=== PATIENT | female | born 1955 | race Caucasian/White ===

== ENCOUNTER 2018-01-28 12:45 | Day surgery (SDC) | payer MEDICARE ==
[~2018-01-28 12:45] MED LIST: Buffered Lidocaine 0.9% SYRIN* 5 ML/SYR SYRINGE INTRADERM ONE
[2018-01-28] MEDS ORDERED: Lidocaine 1% MPF* 2 ML VIAL ONE (12:58)
[2018-01-28] MEDS ORDERED: Neomycin/Polymy/Dex OPHTH.OIN* 3.5 GM ONE (12:58)
[2018-01-28] MEDS ORDERED: Tropicamide 1% OPTH.SOL* BTL ONE (12:58)
[2018-01-28] MEDS ORDERED: Ketorolac 0.5% OPHTH (NF) 0.5 % 5 ML BTL ONE (12:58)
[2018-01-28] MEDS ORDERED: Phenylephrine 2.5% OPTH.SOL* 2 ML BTL ONE (12:58)
[2018-01-28] MEDS ORDERED: Tetracaine 0.5% OPTH.SOL 4 ML* 1 DROP BTL ONE (12:58)
[2018-01-28] MEDS ORDERED: Cyclopentolate 1% OPTH.SOL* 2 ML BTL ONE (12:58)
[2018-01-28] MEDS ORDERED: Midazolam* 1 MG/ML 2 ML VIAL (2 MG) ONE (15:28)
[2018-01-28] MEDS ORDERED: fentaNYL* 50 MCG/ML 2 ML VIAL (100 MCG VIAL) ONE (15:29)
[2018-01-28 16:41] VITALS: BP 92/51
--- NOTE | 2018-01-29 11:52 | OP ---
OPERATIVE REPORT: DATE OF OPERATION: 01/28/18 DATE OF : 53 SURGEON: Dr. Slick Adams. SEARCH MARKETING COORDINATOR: None. ANESTHESIA: Topical with intravenous sedation. PRE-OP DIAGNOSIS: Cataract, right eye. POST-OP DIAGNOSIS: Cataract, right eye. OPERATIVE PROCEDURE: Phacoemulsification and cataract extraction with posterior chamber intraocular lens implant, right eye. COMPLICATIONS: None. BLOOD LOSS: None. DESCRIPTION OF PROCEDURE: The patient was brought to the operating room and received a small amount of intravenous sedation. A drop of Tetracaine was placed in her right eye. She was prepped and drap ed in the usual sterile fashion for ophthalmic surgery and attention was directed to the right eye wh ere a speculum was placed. A paracentesis was created at the 11 o'clock position and 0.1 cc of 1 per cent preservative-free Lidocaine was injected into the anterior chamber followed by DisCoVisc. The e ye was digitally stabilized while a 2.75 mm keratome was used to create a triplanar clear corneal inc ision at the 9 o'clock position. A continuous curvilinear capsulorrhexis was created with a cystotom e and Utrata forceps. BSS on a cannula was used to hydrodissect the lens from the capsule. Phacoemul sification was performed in a buesan-ibr-yvwwrlo technique to create four fragments which were remove d. Residual cortical material was removed with irrigation and aspiration. DisCoVisc was used to inf late the capsular bag and an [id number] 21.5 diopter lens was folded and inserted into the capsular bag. DisCoVisc was removed using irrigation and aspiration. BSS on a cannula was used to hydrate the cor angelica stroma and seal the wound. At the end of the case the pupil was round and the lens was centered . The eye was of normal pressure and the wound was water tight. The speculum was removed and topica l Maxitrol ointment was placed on the surface of the eye. The eye was closed, patched and shielded a nd the patient was sent to the recovery room in stable condition with post operative instructions and follow-up appointment given. [id number]/[facility] #: [id number]
== END 2018-01-28 16:19 | disposition home or self-care (01) ==
LOC: OREAST 12:45
PROVIDERS: ATTEND Ophthalmology
DX: H25.11 Age-related nuclear cataract, right eye (principal); E11.9 Type 2 diabetes mellitus without complications; Z79.84 Long term (current) use of oral hypoglycemic drugs; Z79.4 Long term (current) use of insulin; I10 Essential (primary) hypertension; E78.4 Other hyperlipidemia; F41.8 Other specified anxiety disorders; K75.81 Nonalcoholic steatohepatitis (NASH); D69.3 Immune thrombocytopenic purpura; M19.90 Unspecified osteoarthritis, unspecified site
CPT/HCPCS: A9270-GY; J2250; J3010; V2632

== ENCOUNTER 2018-02-04 11:05 | Day surgery (SDC) | payer MEDICARE ==
[~2018-02-04 11:05] MED LIST changes: +Cyclopentolate 1% OPTH.SOL* 2 ML BTL ONE; +Ketorolac 0.5% OPHTH (NF) 0.5 % 5 ML BTL ONE; +Lidocaine 1% MPF* 2 ML VIAL ONE; +Neomycin/Polymy/Dex OPHTH.OIN* 3.5 GM ONE; +Phenylephr/Ketorolac 1%/0.3% OPH DROP BTL ONE; +Phenylephrine 2.5% OPTH.SOL* 2 ML BTL ONE; +Tetracaine 0.5% OPTH.SOL 4 ML* 1 DROP BTL ONE; +Tropicamide 1% OPTH.SOL* BTL ONE
[2018-02-04] MEDS ORDERED: fentaNYL* 50 MCG/ML 2 ML VIAL (100 MCG VIAL) ONE (12:58)
[2018-02-04] MEDS ORDERED: Midazolam* 1 MG/ML 5 ML VIAL (5 MG) ONE (12:58)
[2018-02-04 14:15] VITALS: BP 95/49
--- NOTE | 2018-02-04 16:46 | OP ---
DATE OF OPERATION/DATE OF DICTATION: 02/04/2018 - LOCATED WITHIN [facility] DATE OF : 1955. SURGEON: Dr. Slick Adams. ELECTRONIC RESOURCES LIBRARIAN: None. ANESTHESIA: Topical with intravenous sedation. PRE-OP DIAGNOSIS: Cataract, left eye. POST-OP DIAGNOSIS: Cataract, left eye. OPERATIVE PROCEDURE: Phacoemulsification and cataract extraction with posterior chamber intraocular lens implant, left eye. COMPLICATIONS: None. BLOOD LOSS: None. DESCRIPTION OF PROCEDURE: The patient was brought to the operating room and received a small amount of intra-venous sedation. A drop of Tetracaine was placed in her left eye. She was prepped and draped in the usual sterile fashion for ophthalmic surgery and attention was directed to the left eye where a speculum was placed. A paracentesis was created at the 5 o'clock position and 0.1 cc of 1 percent preservative-free Lidocaine was injected into the anterior chamber followed by DisCoVisc. The eye was digitally stabilized while a 2.75 mm keratome was used to create a triplanar clear corneal incision at the 3 o'clock position. A continuous curvilinear capsulorrhexis was created with a cystotome and Utrata forceps. BSS on a cannula was used to hydrodissect the lens from the capsule. Phacoemulsification was performed in a divide-and- conquer technique to create four fragments which were removed. Residual cortical material was removed with irrigation and aspiration. DisCoVisc was used to inflate the capsular bag and an AUOOTO 22.0 diopter lens was folded and inserted into the capsular bag. DisCoVisc was removed using irrigation and aspiration. BSS on a cannula was used to hydrate the corneal stroma and seal the wound. At the end of the case the pupil was round and the lens was centered. The eye was of normal pressure and the wound was water tight. The speculum was removed and topical Maxitrol ointment was placed on the surface of the eye. The eye was closed, patched and shielded and the patient was sent to the recovery room in stable condition with post operative instructions and follow-up appointment given. [id number]/[facility] #: [id number] MTDD
== END 2018-02-04 14:22 | disposition home or self-care (01) ==
LOC: OREAST 11:05
PROVIDERS: ATTEND Ophthalmology
DX: H25.12 Age-related nuclear cataract, left eye (principal); E11.9 Type 2 diabetes mellitus without complications; Z79.84 Long term (current) use of oral hypoglycemic drugs; D83.9 Common variable immunodeficiency, unspecified; Z85.41 Personal history of malignant neoplasm of cervix uteri; K76.0 Fatty (change of) liver, not elsewhere classified
CPT/HCPCS: A9270-GY; C9447; J2250; J3010; V2632

== ENCOUNTER 2019-09-16 12:06 | Emergency (ER) | payer MEDICARE ==
--- OUTSIDE RECORDS SUMMARY | 2019-09-16 12:25 | XMS REPORT | Continuity of Care Document ---
:1955 External Reference #:[id number] Author Name Alec Velasquez M.D. (transmitted by agent of provider Selma Zurita) Address [address] [place] [address] Care Team Providers Name Role Phone Herminio Barron MD - Internal Care Team Information [employer] Teacher [phone] Medicine Problems Description No Information Available Social History Type Date Description Comments Sex Unknown Tobacco Use Start: Unknown Patient has never smoked Smoking Status Reviewed: 08/28/19 Patient has never smoked Allergies, Adverse Reactions, Alerts Active Allergies Reaction Severity Comments Date Aspirin 05/03/2010 Ibuprofen 05/03/2010 Morphine 05/03/2010 Codeine 05/03/2010 Lorcet 05/03/2010 Ultram 05/03/2010 Soma 05/03/2010 Cortisone 05/03/2010 Prednisone 05/03/2010 Ceftin 05/03/2010 Flonase 05/03/2010 vioxx 05/03/2010 Dilaudid 05/03/2010 Percocet 01/20/2019 Sulfur 01/20/2019 Singulair 01/20/2019 Bactroban 01/20/2019 Cipro 01/20/2019 Levaquin 01/20/2019 Biaxin 01/20/2019 Statins 01/20/2019 NSAIDS 01/20/2019 Adhesives and band aids 01/20/2019 Bee Sting anaphylactic shock 01/20/2019 Tomatoes 01/20/2019 Medications Active Medications SIG Qnty Indications Ordering Date Provider Epipen 2-Elvis use as directed as 2units Alec Velasquez, 07/28/2019 needed for severe M.D. 0.3mg/0.3ML allergic reaction; Solution go to the ER for Auto-Inject severe reactions Ambulatory Infusion infusion pump for 1units Alec Velasquez, 07/08/2019 Pump [id number] home infusion by Mauricio patient for subcutaneous infusion of Hizentra Hizentra 2 gm/10 milliliters 40ml Alec Victoriar, 05/26/2019 2GM/10ML every week M.D. Solution Lidoderm 1 apply to affected 30units M06.251 Alec Victoriar, 01/20/2019 5% Patches area 12 hours on, 12 M.D. hours off to the right lateral hip region Cymbalta 1 po qd Kayley Gonsalves, 05/03/2010 60mg Caps M.D., FACP DR Martha Mae 1 po qd 90tabs Kayley Brina, 05/03/2010 100mg M.D., FACP Tablets Skelaxin 1 q 8 hours prn 15tabs Kayleyonel Gonsalves, 05/03/2010 800mg muscle spasms M.D., FACP Tablets Fish Oil Unknown Cinnamon Unknown Magnesium Unknown Vitamin D Unknown Toujeo Max Solostar Unknown 300Unit/ML Solution Pen-Inject Humalog sliding scale Unknown 100Unit/ML Solution Cartridge Nayely Allergy 1 tab by mouth every Unknown day as needed 180mg Tablets Gabapentin take one capsule by Unknown 400mg mouth 3 times a day Capsules Metformin HCL 1000 mg breakfast Unknown 500mg and bedtime, 500 mg Tablets at lunch Immunizations CPT Code Status Date Vaccine Lot # [id number] Given 07/26/2008 Influenza Virus 3Yrs & Over Vital Signs Date Vital Result Comment 08/28/2019 11:46am Height 62 inches 5'2" Weight 185.00 lb Heart Rate 68 /min BP Systolic Sitting 153 mmHg BP Diastolic Sitting 74 mmHg Respiratory Rate 18 /min Body Temperature 96.5 F Pain Level 10 back O2 % BldC Oximetry 98 % BMI (Body Mass Index) 33.8 kg/m2 05/26/2019 1:38pm Height 62 inches 5'2" Weight 181.00 lb Heart Rate 84 /min BP Systolic Sitting 122 mmHg BP Diastolic Sitting 72 mmHg Pain Level 9 O2 % BldC Oximetry 94 % BMI (Body Mass Index) 33.1 kg/m2 Results Test Acquired Date Facility Test Result H/L Range Note Comp Metabolic 05/27/2019 [facility] Sodium 137 mmol/L Normal 135-[address] [place] [address] [phone] Potassium 3.4 mmol/L Low 3.5-5.0 Chloride 102 mmol/L Normal 101-111 Co2 Carbon Dioxide 29 mmol/L Normal 22-32 Anion Gap 6 mmol/L Normal 2-11 Glucose 292 mg/dL High 70-100 Blood Urea Nitrogen 7 mg/dL Normal 6-24 Creatinine 0.51 mg/dL Normal 0.51-0.95 BUN/Creatinine Ratio 13.7 Normal 8-20 Calcium 8.8 mg/dL Normal 8.6-10.3 Total Protein 6.9 g/dL Normal 6.4-8.9 Albumin 3.0 g/dL Low 3.2-5.2 Globulin 3.9 g/dL Normal 2-4 Albumin/Globulin Ratio 0.8 Low 1-3 Total Bilirubin 1.60 mg/dL High 0.2-1.0 Alkaline Phosphatase 169 U/L High 34-104 Alt 18 U/L Normal 7-52 Ast 29 U/L Normal 13-39 Egfr Non- 121.0 >60 Egfr 146.4 >60 1 Laboratory test 05/27/2019 [facility] C Reactive 11.53 High < 8.[address] Protein mg/[place] [address] [phone] CBC Auto Diff 05/27/2019 [facility] White Blood 4.9 Normal 3.5 -10.[address] Count 10^3/[place] [address] [phone] Red Blood Count 4.58 10^6/uL Normal 3.70-4.87 Hemoglobin 14.4 g/dL Normal 12.0-16.0 Hematocrit 42 % Normal 35-47 Mean Corpuscular Volume 91 fL Normal 80-97 Mean Corpuscular Hemoglobin 31 pg Normal 27-31 Mean Corpuscular HGB Conc 34 g/dL Normal 31-36 Red Cell Distribution Width 15 % Normal 10-15 Platelet Count 65 10^3/uL Low 150-450 2 Mean Platelet Volume 8.1 fL Normal 7.4-10.4 Abs Neutrophils 2.8 10^3/uL Normal 1.5-7.7 Abs Lymphocytes 1.4 10^3/uL Normal 1.0-4.8 Abs Monocytes 0.5 10^3/uL Normal 0-0.8 Abs Eosinophils 0.2 10^3/uL Normal 0-0.6 Abs Basophils 0.0 10^3/uL Normal 0-0.2 Abs Nucleated RBC 0.0 10^3/uL Granulocyte % 56.5 % Lymphocyte % 29.1 % Monocyte % 9.2 % Eosinophil % 4.5 % Basophil % 0.7 % Nucleated Red Blood Cells % 0.1 Laboratory test 05/27/2019 [facility] Erythrocyte Sed 24 mm/Hr Normal 0-29 [address] [place] [address] [phone] Comp Metabolic 03/31/2019 [facility] Sodium 135 Normal 135- [address] mmol/[place] [address] [phone] Potassium 3.6 mmol/L Normal 3.5-5.0 Chloride 100 mmol/L Low 101-111 Co2 Carbon Dioxide 27 mmol/L Normal 22-32 Anion Gap 8 mmol/L Normal 2-11 Glucose 173 mg/dL High 70-100 Blood Urea Nitrogen 7 mg/dL Normal 6-24 Creatinine 0.43 mg/dL Low 0.51-0.95 BUN/Creatinine Ratio 16.3 Normal 8-20 Calcium 9.3 mg/dL Normal 8.6-10.3 Total Protein 6.9 g/dL Normal 6.4-8.9 Albumin 3.0 g/dL Low 3.2-5.2 Globulin 3.9 g/dL Normal 2-4 Albumin/Globulin Ratio 0.8 Low 1-3 Total Bilirubin 1.60 mg/dL High 0.2-1.0 Alkaline Phosphatase 169 U/L High 34-104 Alt 20 U/L Normal 7-52 Ast 35 U/L Normal 13-39 Egfr Non- 147.8 >60 Egfr 178.9 >60 4 Laboratory test 03/31/2019 [facility] C Reactive 9.89 mg/L High <8.[address] [place] [address] [phone] CBC Auto Diff 03/31/2019 [facility] White Blood 6.2 Normal 3.5 -10.[address] Count 10^3/[place] [address] [phone] Red Blood Count 4.59 10^6/uL Normal 3.70-4.87 Hemoglobin 14.1 g/dL Normal 12.0-16.0 Hematocrit 42 % Normal 35-47 Mean Corpuscular Volume 92 fL Normal 80-97 Mean Corpuscular Hemoglobin 31 pg Normal 27-31 Mean Corpuscular HGB Conc 34 g/dL Normal 31-36 Red Cell Distribution Width 15 % Normal 10.5-15 Platelet Count 78 10^3/uL Low 150-450 5 Mean Platelet Volume 8.1 fL Normal 7.4-10.4 Abs Neutrophils 3.7 10^3/uL Normal 1.5-7.7 Abs Lymphocytes 1.7 10^3/uL Normal 1.0-4.8 Abs Monocytes 0.6 10^3/uL Normal 0-0.8 Abs Eosinophils 0.2 10^3/uL Normal 0-0.6 Abs Basophils 0.0 10^3/uL Normal 0-0.2 Abs Nucleated RBC 0.0 10^3/uL Granulocyte % 59.0 % Lymphocyte % 27.2 % Monocyte % 9.9 % Eosinophil % 3.1 % Basophil % 0.8 % Nucleated Red Blood Cells % 0.1 Laboratory test 03/31/2019 [facility] Erythrocyte Sed 24 mm/Hr Normal 0-[address] [place] [address] [phone] Comp Metabolic 03/03/2019 [facility] Sodium 137 Normal 135- [address] mmol/[place] [address] [phone] Potassium 3.3 mmol/L Low 3.5-5.0 Chloride 102 mmol/L Normal 101-111 Co2 Carbon Dioxide 27 mmol/L Normal 22-32 Anion Gap 8 mmol/L Normal 2-11 Glucose 324 mg/dL High 70-100 Blood Urea Nitrogen 6 mg/dL Normal 6-24 Creatinine 0.47 mg/dL Low 0.51-0.95 BUN/Creatinine Ratio 12.8 Normal 8-20 Calcium 8.8 mg/dL Normal 8.6-10.3 Total Protein 6.6 g/dL Normal 6.4-8.9 Albumin 3.0 g/dL Low 3.2-5.2 Globulin 3.6 g/dL Normal 2-4 Albumin/Globulin Ratio 0.8 Low 1-3 Total Bilirubin 1.00 mg/dL Normal 0.2-1.0 Alkaline Phosphatase 222 U/L High 34-104 Alt 21 U/L Normal 7-52 Ast 34 U/L Normal 13-39 Egfr Non- 133.4 >60 Egfr 161.4 >60 6 Laboratory test 03/03/2019 [facility] C Reactive 8.96 mg/L High <8.[address] [place] [address] [phone] CBC Auto Diff 03/03/2019 [facility] White Blood 4.7 Normal 3.5 -10.[address] Count 10^3/[place] [address] [phone] Red Blood Count 4.40 10^6/uL Normal 3.70-4.87 Hemoglobin 13.5 g/dL Normal 12.0-16.0 Hematocrit 40 % Normal 35-47 Mean Corpuscular Volume 92 fL Normal 80-97 Mean Corpuscular Hemoglobin 31 pg Normal 27-31 Mean Corpuscular HGB Conc 34 g/dL Normal 31-36 Red Cell Distribution Width 15 % Normal 10.5-15 Platelet Count 73 10^3/uL Low 150-450 7 Mean Platelet Volume 7.9 fL Normal 7.4-10.4 Abs Neutrophils 2.7 10^3/uL Normal 1.5-7.7 Abs Lymphocytes 1.2 10^3/uL Normal 1.0-4.8 Abs Monocytes 0.5 10^3/uL Normal 0-0.8 Abs Eosinophils 0.2 10^3/uL Normal 0-0.6 Abs Basophils 0.0 10^3/uL Normal 0-0.2 Abs Nucleated RBC 0.0 10^3/uL Granulocyte % 58.1 % Lymphocyte % 26.4 % Monocyte % 10.6 % Eosinophil % 4.6 % Basophil % 0.3 % Nucleated Red Blood Cells % 0.2 Laboratory test 03/03/2019 [facility] Erythrocyte Sed 25 mm/Hr Normal 0-[address] [place] [address] [phone] 1 Because ethnic data is not always readily available, this report includes an eGFR for both -Americans and non- Americans. The National Kidney Disease Education Program (NKDEP) does not endorse the use of the MDRD equation for patients that are not between the ages of 18 and 70, are , have extremes of body size, muscle mass, or nutritional status, or are non- or non-. According to the National Kidney Foundation, irrespective of diagnosis, the stage of the disease is based on the level of kidney function: Stage Description GFR(mL/min/1.73 m(2)) 1 Kidney damage with normal or decreased GFR 90 2 Kidney damage with mild decrease in GFR 60-89 3 Moderate decrease in GFR 30-59 4 Severe decrease in GFR 15-29 5 Kidney failure <15 (or dialysis) 2 Consistent with Previous Results Reported on 03/31/19 3 Test Performed by: [facility] [address] [place] [id number] Zhen Donaldson M.D. Director of Laboratory 4 Because ethnic data is not always readily available, this report includes an eGFR for both -Americans and non- Americans. The National Kidney Disease Education Program (NKDEP) does not endorse the use of the MDRD equation for patients that are not between the ages of 18 and 70, are , have extremes of body size, muscle mass, or nutritional status, or are non- or non-. According to the National Kidney Foundation, irrespective of diagnosis, the stage of the disease is based on the level of kidney function: Stage Description GFR(mL/min/1.73 m(2)) 1 Kidney damage with normal or decreased GFR 90 2 Kidney damage with mild decrease in GFR 60-89 3 Moderate decrease in GFR 30-59 4 Severe decrease in GFR 15-29 5 Kidney failure <15 (or dialysis) 5 Consistent with Previous Results Reported on 03/03/19 6 Because ethnic data is not always readily available, this report includes an eGFR for both -Americans and non- Americans. The National Kidney Disease Education Program (NKDEP) does not endorse the use of the MDRD equation for patients that are not between the ages of 18 and 70, are , have extremes of body size, muscle mass, or nutritional status, or are non- or non-. According to the National Kidney Foundation, irrespective of diagnosis, the stage of the disease is based on the level of kidney function: Stage Description GFR(mL/min/1.73 m(2)) 1 Kidney damage with normal or decreased GFR 90 2 Kidney damage with mild decrease in GFR 60-89 3 Moderate decrease in GFR 30-59 4 Severe decrease in GFR 15-29 5 Kidney failure <15 (or dialysis) 7 Consistent with Previous Results Reported on 01/20/19 Procedures Description No Information Available Medical Devices Description No Information Available Encounters Type Date Location Provider Dx Diagnosis Office Visit 05/26/2019 Rheumatology Alec Velasquez 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 08/28/2019 D69.3 Immune thrombocytopenic purpura Alec Velasquez M.D. 08/28/2019 G62.9 Polyneuropathy, unspecified Alec Velasquez M.D. 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 subclasses 05/26/2019 R74.8 Abnormal levels of other serum enzymes Alec Velasquez M.D. 05/26/2019 R20.8 Other disturbances of skin sensation Alec Velasquez M.D. 05/26/2019 G62.9 Polyneuropathy, unspecified Alec Velasquez M.D. Plan of Treatment Future Appointment(s):10/29/2019 1:00 pm - Alec Vel[facility]quez M.D. 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 Please evaluate and treat patient with Sent persistent low platelets and leukopenia; she would like a 2nd opinion [address] [place], [place] [id number] [phone]
[2019-09-16 13:08] LABS: ABS Eosinophils 0.2 10^3/ul (0-0.6); ABS Lymphocytes 1.6 10^3/ul (1.0-4.8); ABS Monocytes 0.6 10^3/ul (0-0.8); ABS Neutrophils 3.3 10^3/ul (1.5-7.7); Eosinophil % 3.3 %; Hematocrit 43 % (35-47); Mean Corpuscular HGB Conc 35 g/dL (31-36); Mean Corpuscular Hemoglobin 32 pg (27-31); Mean Corpuscular Volume 92 fL (80-97); Mean Platelet Volume 7.4 fL (7.4-10.4); Nucleated Red Blood Cells % 0.2; Platelet Count 81 10^3/uL (150-450); Red Cell Distribution Width 15 % (10-15); White Blood Count 5.8 10^3/uL (3.5-10.8)
[2019-09-16 13:34] LABS: Albumin 3.1 g/dL (3.2-5.2); Albumin/Globulin Ratio 0.8 (1-3); BUN/Creatinine Ratio 11.5 (8-20); EGFR African American 143.2 (>60); EGFR Non-African American 118.3 (>60); Potassium 3.9 mmol/L (3.5-5.0); Total Bilirubin 1.6 mg/dL (0.2-1.0); Total Protein 7.1 g/dL (6.4-8.9)
[2019-09-16] MEDS ORDERED: Ondansetron INJ* 2 MG/ML VIAL IV ONE (14:15)
[2019-09-16] MEDS ORDERED: fentaNYL* 50 MCG/ML 2 ML VIAL (100 MCG VIAL) IV SLOW PU ONE ×2 (14:16→16:19)
--- NOTE | 2019-09-16 14:18 | ED ---
GI/ HPI - HPI Summary HPI Summary: 64 year old female presents with abdominal pain for in the past month. States that pain is being caused by her gallbladder and she was suppose to have it removed as the smith where thick. she is unable to have the surgery due to the low platelets. She has a follow-up next week with dr covarrubias about her platelets. States she's been having consistent pain along with nausea and vomiting for a month. She denies eating anything different. She states is currently on azithromycin but diarrhea started before azithromycin. no blood in stool. She states that she is in severe pain and cannot eat due to the pain. No urinary symptoms. No chest pressures or shortness of breath. - History of Current Complaint Chief Complaint: EDAbdPain Time Seen by Provider: 09/16/19 13:59 Stated Complaint: UPPER ABD PAIN PER PT Pain Intensity: 10 - Allergy/Home Medications Allergies/Adverse Reactions: Allergies Allergy/AdvReac Type Severity Reaction Status Date / Time clarithromycin [From Biaxin] Allergy Severe Anaphylatic Verified 09/16/19 12:20 Shock acetaminophen [From Percocet] Allergy Anaphylatic Verified 09/16/19 12:20 Shock aspirin Allergy Anaphylatic Verified 09/16/19 12:20 Shock carisoprodol [From Soma] Allergy Anaphylatic Verified 09/16/19 12:20 Shock cefuroxime [From Ceftin] Allergy Anaphylatic Verified 09/16/19 12:20 Shock ciprofloxacin [From Cipro] Allergy Anaphylatic Verified 09/16/19 12:20 Shock codeine Allergy Anaphylatic Verified 09/16/19 12:20 Shock cortisone Allergy Anaphylatic Verified 09/16/19 12:20 Shock fluticasone [From Flonase] Allergy Anaphylatic Verified 09/16/19 12:20 Shock hydrocodone Allergy Anaphylatic Verified 09/16/19 12:20 [From Lorcet (hydrocodone)] Shock hydromorphone [From Dilaudid] Allergy Anaphylatic Verified 09/16/19 12:20 Shock ibuprofen Allergy Anaphylatic Verified 09/16/19 12:20 Shock levofloxacin [From Levaquin] Allergy Anaphylatic Verified 09/16/19 12:20 Shock meperidine [From Demerol] Allergy Anaphylatic Verified 09/16/19 12:20 Shock montelukast [From Singulair] Allergy Anaphylatic Verified 09/16/19 12:20 Shock morphine Allergy Anaphylatic Verified 09/16/19 12:20 Shock mupirocin [From Bactroban] Allergy Anaphylatic Verified 09/16/19 12:20 Shock oxycodone [From Percocet] Allergy Anaphylatic Verified 09/16/19 12:20 Shock prednisone Allergy Anaphylatic Verified 09/16/19 12:20 Shock rofecoxib [From Vioxx] Allergy Anaphylatic Verified 09/16/19 12:20 Shock Sulfa (Sulfonamide Allergy Anaphylatic Verified 09/16/19 12:20 Antibiotics) Shock tramadol [From Ultram] Allergy Anaphylatic Verified 09/16/19 12:20 Shock PMH/Surg Hx/FS Hx/Imm Hx Endocrine/Hematology History: Reports: Hx Diabetes Cardiovascular History: Denies: Hx Myocardial Infarction GI History: Reports: Hx Irritable Bowel History: Reports: Hx Kidney Stones Sensory History: Reports: Hx Cataracts - PRESENTLY, Hx Contacts or Glasses - GLASSES, Hx Hearing Aid - BILATERAL Opthamlomology History: Reports: Hx Cataracts - PRESENTLY, Hx Contacts or Glasses - GLASSES Neurological History: Reports: Other Neuro Impairments/Disorders - NEUROPATHY LEFT LEG Psychiatric History: Reports: Hx Depression - Surgical History Surgery Procedure, Year, and Place: 1985 [place] SUR[place]ERY [place]. [place]. 1985 BTL [place]. APPY 1992 [place]. LOWER BACK SURGERY [place]. 2000 RIGHT KNEE [place]. BACK SURGERY 2002 2003 BACK SURGERY [place]. D&C 2006 [facility] [place]. AN 2007 [facility] [place] LEFT [facility]AL [facility] CERVICAL FUSION 2009 [place]. 2012 SEPTAL SURGERY [place]. 2013 STENT KIDNEY [facility]. 2015 STIMULTOR IMPLANT [place]. RIGHT CARPAL [place] 2008 Hx Anesthesia Reactions: Yes - DURING BTL "HEART STOPPED" Infectious Disease History: No Infectious Disease History: Reports: Hx Hepatitis - AGE 16 Denies: Traveled Outside the [place] in Last 30 Days - Family History Known Family History: Positive: Non-Contributory - Social History Alcohol Use: None Substance Use Type: Reports: None Smoking Status (MU): Never Smoked Tobacco Have You Smoked in the Last Year: No Review of Systems Negative: Fever Negative: Chest Pain Negative: Shortness Of Breath Positive: Abdominal Pain, Vomiting, Diarrhea, Nausea All Other Systems Reviewed And Are Negative: Yes Physical Exam Triage Information Reviewed: Yes Vital Signs On Initial Exam: Initial Vitals Temp Pulse Resp BP Pulse Ox 98.4 F 71 16 132/65 97 09/16/19 12:15 09/16/19 12:15 09/16/19 12:15 09/16/19 12:15 09/16/19 12:15 Vital Signs Reviewed: Yes Appearance: Positive: Well-Appearing Skin: Positive: Warm, Dry Head/Face: Positive: Normal Head/Face Inspection Eyes: Positive: Normal, Conjunctiva Clear ENT: Positive: Pharynx normal Respiratory/Lung Sounds: Positive: Clear to Auscultation, Breath Sounds Present Cardiovascular: Positive: Normal, RRR Abdomen Description: Positive: Soft, Other: - tenderness in RUQ Bowel Sounds: Positive: Present Musculoskeletal: Positive: Normal Neurological: Positive: Normal Psychiatric: Positive: Normal Procedures - Sedation Patient Received Moderate/Deep Sedation with Procedure: No Diagnostics - Vital Signs Vital Signs Temp Pulse Resp BP Pulse Ox 09/16/19 12:15 98.4 F 71 16 132/65 97 - Laboratory Lab Results: Lab Results 09/16/19 09/16/19 Range/Units 13:01 13:01 WBC 5.8 (3.5-10.8) 10^3/uL RBC 4.70 (3.70-4.87) 10^6 /uL Hgb 15.0 (12.0-16.0) g/dL Hct 43 (35-47) % MCV 92 (80-97) fL MCH 32 H (27-31) pg MCHC 35 (31-36) g/dL RDW 15 (10-15) % Plt Count 81 L (150-450) 10^3/uL MPV 7.4 (7.4-10.4) fL Neut % (Auto) 57.4 % Lymph % (Auto) 28.0 % [place] % (Auto) 10.6 % Eos % (Auto) 3.3 % Baso % (Auto) 0.7 % Absolute Neuts (auto) 3.3 (1.5-7.7) 10^3/ul Absolute Lymphs (auto) 1.6 (1.0-4.8) 10^3/ul Absolute Monos (auto) 0.6 (0-0.8) 10^3/ul Absolute Eos (auto) 0.2 (0-0.6) 10^3/ul Absolute Basos (auto) 0.0 (0-0.2) 10^3/ul Absolute Nucleated RBC 0.0 10^3/ul Nucleated RBC % 0.2 Sodium 138 (135-145) mmol/L Potassium 3.9 (3.5-5.0) mmol/L Chloride 105 (101-111) mmol/L Carbon Dioxide 26 (22-32) mmol/L Anion Gap 7 (2-11) mmol/L BUN 6 (6-24) mg/dL Creatinine 0.52 (0.51-0.95) mg/dL Est GFR ( Amer) 143.2 (>60) Est GFR (Non-Af Amer) 118.3 (>60) BUN/Creatinine Ratio 11.5 (8-20) Glucose 125 H (70-100) mg/dL Calcium 9.0 (8.6-10.3) mg/dL Total Bilirubin 1.60 H (0.2-1.0) mg/dL AST 36 (13-39) U/L ALT 20 (7-52) U/L Alkaline Phosphatase 137 H (34-104) U/L Total Protein 7.1 (6.4-8.9) g/dL Albumin 3.1 L (3.2-5.2) g/dL Globulin 4.0 (2-4) g/dL Albumin/Globulin Ratio 0.8 L (1-3) Lipase 37 (11.0-82.0) U/L Result Diagrams: 09/16/19 13:01 09/16/19 13:01 Lab Statement: Any lab studies that have been ordered have been reviewed, and results considered in the medical decision making process. - Ultrasound No standard instances Ultrasound Interpretation Completed By: Radiologist Summary of Ultrasound Findings: IMPRESSION: TECHNICALLY DIFFICULT EXAM DUE TO PATIENT PAIN INTOLERANCE. 1. SONOGRAPHIC [place] SIGN WAS POSITIVE. THE NONDISTENDED GALLBLADDER CONTAINS SLUDGE. THERE IS NO INTRA OR EXTRAHEPATIC BILIARY DUCTAL DILATATION. 2. QUESTIONABLE EARLY CIRRHOTIC MORPHOLOGY OF THE LIVER IS CHARACTERIZED BY PARENCHYMAL HETEROGENEITY AND A NODULAR HEPATIC CAPSULE. Re-Evaluation - Re-Evaluation First Eval Re-Evaluation Time: 16:39 Change: Improved Comment: feeling better, discussed results GIGU Course/Dx - Course Course Of Treatment: 64 year old female presents with abdominal pain for in the past month. States that pain is being caused by her gallbladder and she was suppose to have it removed as the smith where thick. she is unable to have the surgery due to the low platelets. She has a follow-up next week with dr covarrubias about her platelets. States she's been having consistent pain along with nausea and vomiting for a month. She denies eating anything different. She states is currently on azithromycin but diarrhea started before azithromycin. no blood in stool. She states that she is in severe pain and cannot eat due to the pain. No urinary symptoms. No chest pressures or shortness of breath. On exam tenderness right upper quadrant. wbc normal. CRP normal. bilirubin 1.6 which is consistent with previous. platelets 81 which is consistent with previous. urine likely contaminant. gallbladder u/s shows nondistended gallbladder contains sludge. there is question of early cirrhotic morphology of liver. will give referral to GI and surgery. patient understand and agrees with plan. - Diagnoses Differential Diagnoses - Female: Gall Bladder Disease, Gastritis, Urinary Tract Infection Provider Diagnoses: Gallbladder sludge Discharge ED - Sign-Out/Discharge Documenting (check all that apply): Patient Departure - Discharge Plan Condition: Good Disposition: HOME Prescriptions: Ondansetron TAB* [Zofran 4 MG Tab*] 4 mg PO Q6H PRN #20 tab PRN Reason: Nausea Patient Education Materials: Biliary Colic (ED) Referrals: Jai Osuna MD [Medical Doctor] - Geni Jordan MD [Medical Doctor] - Minor Covarrubias MD [Medical Doctor] - Herminio Barron MD [Primary Care Provider] - Additional Instructions: follow up with heme follow up with surgery follow up with GI about liver Eat a low fat diet Return to ED if develop any new or worsening symptoms - Billing Disposition and Condition Condition: GOOD Disposition: Home - Attestation Statements Provider Attestation: I was available for consultation for this patient. I did not evaluate the patient or participate in any medical decision making or disposition decisions unless I am specifically named in the chart as having consulted on the patient. If I have consulted on the patient, please see my own ED note on the patient encounter. Izzy Barboza MD
[2019-09-16 14:48] LABS: Urine Appearance Cloudy; Urine Bilirubin Negative (Negative); Urine Blood Negative (Negative); Urine Color Amber; Urine Glucose Negative (Negative); Urine Ketones Negative (Negative); Urine Nitrite Negative (Negative); Urine Protein Negative (Negative); Urine Specific Gravity 1.019 (1.010-1.030); Urine Urobilinogen Negative (Negative)
[2019-09-16 14:56] LABS: Urine Bacteria Absent (Absent); Urine Red Blood Cell Absent (Absent); Urine Squamous Epithelial Cell Present (Absent); Urine White Blood Cell Trace(0-5/hpf) (Absent)
[2019-09-16] MEDS ORDERED: O ndansetron ODT 4MG 5TAB PRPK 4 MG PAK PO ONE (16:13)
[2019-09-16 17:01] VITALS: BP 140/69
== END 2019-09-16 17:00 | disposition home or self-care (01) ==
LOC: ED 12:06
DX: K82.9 Disease of gallbladder, unspecified (principal); R11.2 Nausea with vomiting, unspecified; E11.9 Type 2 diabetes mellitus without complications; Z88.6 Allergy status to analgesic agent; Z88.1 Allergy status to other antibiotic agents; Z88.5 Allergy status to narcotic agent; Z88.2 Allergy status to sulfonamides; Z88.8 Allergy status to other drugs, medicaments and biological substances
CPT/HCPCS: 36415; 76705; 80053; 81003; 81015; 83690; 85025; 87086; 96374; 96375; 96376; 99283; A9270-GY; J2405; J3010

== ENCOUNTER 2021-10-01 02:12 | Inpatient (IN) ==
[2021-10-01 06:38] LABS: ABS Eosinophils 0.1 10^3/ul (0-0.6); ABS Lymphocytes 1.2 10^3/ul (1.0-4.8); ABS Monocytes 1.1 10^3/ul (0-0.8); ABS Neutrophils 10.5 10^3/ul (1.5-7.7); Hematocrit 38 % (35-47); Hemoglobin 13.4 g/dL (12.0-16.0); Lymphocyte % 9.4 %; Mean Corpuscular HGB Conc 35 g/dL (31-36); Mean Corpuscular Hemoglobin 34 pg (27-31); Mean Corpuscular Volume 97 fL (80-97); Mean Platelet Volume 7.9 fL (7.4-10.4); Platelet Count 50 10^3/uL (150-450); Red Blood Count 3.92 10^6 /uL (3.70-4.87); Red Cell Distribution Width 15 % (10-15); White Blood Count 12.9 10^3/uL (3.5-10.8)
[2021-10-01 06:44] LABS: INR 1.43 (0.86-1.15)
[2021-10-01 06:56] LABS: ALT 18 U/L (7-52); Albumin 2.8 g/dL (3.2-5.2); Albumin/Globulin Ratio 0.7 (1-3); Alkaline Phosphatase 145 U/L (35-149); Blood Urea Nitrogen 13 mg/dL (6-24); CO2 Carbon Dioxide 25 mmol/L (22-32); Calcium 9.3 mg/dL (8.6-10.3); Chloride 100 mmol/L (101-111); Globulin 3.8 g/dL (2-4); Glucose 133 mg/dL (70-100); Sodium 131 mmol/L (135-145); Total Protein 6.6 g/dL (6.4-8.9); eGFR CKD-EPI 69.1 (>60)
[2021-10-01 06:58] LABS: Troponin I 0.01 ng/mL (<0.03)
[2021-10-01] MEDS ORDERED: NS 0.9% 1000 ml BAG 1,000 ML IV ONE (07:20)
[2021-10-01 08:25] LABS: Rapid COVID-19 Molecular Undetected (Undetected)
[2021-10-01] MEDS ORDERED: Ondansetron 4 mg VIAL 2 MG/ML 2 ml VIAL IV ONE (08:36)
[2021-10-01 09:22] LABS: Anion Gap 6 mmol/L (2-11)
[2021-10-01 10:05] LABS: Potassium Redraw 4.5 mmol/L (3.5-5.0)
[2021-10-01] MEDS ORDERED: Dextrose 50% Syringe 50 ml 25 GM/50 ML SYRINGE IV PUSH PRN (10:24)
[2021-10-01] MEDS ORDERED: Enoxaparin 40 MG/0.4 ML SYR SUBCUT SCH (11:00)
[2021-10-01] MEDS ORDERED: Prochlorperazine 5 mg/ml 2 ml VIAL (10 mg) IV PRN (11:06)
[2021-10-01] MEDS ORDERED: Prochlorperazine 5 mg/ml 2 ml VIAL (10 mg) IV ONE (11:06)
[2021-10-01 11:24] LABS: Urine Appearance Cloudy; Urine Bilirubin Negative (Negative); Urine Blood 1+ (Negative); Urine Color Yellow; Urine Glucose Negative (Negative); Urine Ketones Negative (Negative); Urine Nitrite Negative (Negative); Urine Protein Negative (Negative); Urine Specific Gravity 1.009 (1.002-1.030); Urine Urobilinogen Negative (Negative)
[2021-10-01 11:29] LABS: Urine Bacteria 2+ (Absent); Urine Red Blood Cell Absent (Absent); Urine Squamous Epithelial Cell Present (Absent); Urine White Blood Cell Trace(0-5/hpf) (Absent)
[2021-10-01] MEDS ORDERED: Insulin GLARGINE 100 un/ml 10 ml VIAL SUBCUT SCH (18:00)
[2021-10-01] MEDS: Lactulose 300 ML for PR 200 GM/300 ML BTL PR SCH (20:18)
[2021-10-01] MEDS ORDERED: Colestipol 1 gm TAB (NF) PO SCH (21:00)
[2021-10-01] MEDS: Insulin GLARGINE 100 un/ml 10 ml VIAL SUBCUT SCH (21:59)
[2021-10-02] MEDS: Lactulose 300 ML for PR 200 GM/300 ML BTL PR SCH ×3 (00:10→15:08)
[2021-10-02 05:40] LABS: ABS Monocytes 1.4 10^3/ul (0-0.8); ABS Neutrophils 13.2 10^3/ul (1.5-7.7); Eosinophil % 0.3 %; Hematocrit 36 % (35-47); Hemoglobin 12.8 g/dL (12.0-16.0); Lymphocyte % 6.4 %; Mean Corpuscular HGB Conc 35 g/dL (31-36); Mean Corpuscular Hemoglobin 35 pg (27-31); Mean Corpuscular Volume 98 fL (80-97); Mean Platelet Volume 8.2 fL (7.4-10.4); Platelet Count 41 10^3/uL (150-450); Red Cell Distribution Width 15 % (10-15); White Blood Count 15.6 10^3/uL (3.5-10.8)
[2021-10-02 08:41] LABS: Calcium 8.1 mg/dL (8.6-10.3); Potassium 4.1 mmol/L (3.5-5.0)
[2021-10-02 08:47] LABS: eGFR CKD-EPI 40.9 (>60)
[2021-10-02] MEDS: Cholecalciferol (VIT D3) 1,000 unit TAB PO SCH (09:16)
[2021-10-02] MEDS: Insulin GLARGINE 100 un/ml 10 ml VIAL SUBCUT SCH ×2 (09:29→21:57)
[2021-10-02] MEDS ORDERED: NS 0.9% 1000 ml BAG 1,000 ML IV SCH (16:30)
[2021-10-02] MEDS: metroNIDAZOLE IV 500 MG/100ML 500 MG/100 ML BAG IVPB SCH (17:28)
[2021-10-02] MEDS: Ondansetron 4 mg VIAL 2 MG/ML 2 ml VIAL IV PRN (22:00)
[2021-10-03] MEDS: metroNIDAZOLE IV 500 MG/100ML 500 MG/100 ML BAG IVPB SCH ×3 (00:34→17:17)
[2021-10-03] MEDS: Ondansetron 4 mg VIAL 2 MG/ML 2 ml VIAL IV PRN ×2 (00:34→22:12)
[2021-10-03 05:50] LABS: ABS Basophils 0.1 10^3/ul (0-0.2); ABS Eosinophils 0.3 10^3/ul (0-0.6); ABS Lymphocytes 1.5 10^3/ul (1.0-4.8); ABS Monocytes 1.1 10^3/ul (0-0.8); ABS Neutrophils 6.8 10^3/ul (1.5-7.7); Eosinophil % 2.8 %; Hematocrit 31 % (35-47); Lymphocyte % 15.2 %; Mean Corpuscular HGB Conc 36 g/dL (31-36); Mean Corpuscular Hemoglobin 35 pg (27-31); Mean Corpuscular Volume 96 fL (80-97); Mean Platelet Volume 7.7 fL (7.4-10.4); Platelet Count 37 10^3/uL (150-450); Red Blood Count 3.17 10^6 /uL (3.70-4.87); Red Cell Distribution Width 15 % (10-15); White Blood Count 9.8 10^3/uL (3.5-10.8)
[2021-10-03 06:09] LABS: Calcium 7.9 mg/dL (8.6-10.3); Magnesium 1.4 mg/dL (1.9-2.7); Potassium 3.3 mmol/L (3.5-5.0); eGFR CKD-EPI 49.1 (>60)
[2021-10-03] MEDS: Cholecalciferol (VIT D3) 1,000 unit TAB PO SCH (08:14)
[2021-10-03] MEDS: Insulin GLARGINE 100 un/ml 10 ml VIAL SUBCUT SCH ×2 (08:21→22:11)
[2021-10-03] MEDS: KCL 20 MEQ/100 ML IVPREMIX 20 MEQ/100 ML BAG IV SCH ×2 (10:00→13:52)
[2021-10-03] MEDS ORDERED: Potassium Chlor 20 meq TAB.ER PO ONE (13:49)
[2021-10-03] MEDS: Magnesium Sulfate 2 gm BAG 2 GM/50 ML BAG IVPB SCH ×2 (14:35→16:19)
[2021-10-03] MEDS ORDERED: Magnesium Sulfate 2 gm BAG 2 GM/50 ML BAG ONE (16:17)
[2021-10-04] MEDS: metroNIDAZOLE IV 500 MG/100ML 500 MG/100 ML BAG IVPB SCH ×2 (02:12→09:15)
[2021-10-04 05:30] LABS: ABS Eosinophils 0.2 10^3/ul (0-0.6); ABS Lymphocytes 1.2 10^3/ul (1.0-4.8); ABS Monocytes 0.7 10^3/ul (0-0.8); ABS Neutrophils 4.6 10^3/ul (1.5-7.7); Hematocrit 33 % (35-47); Hemoglobin 11.7 g/dL (12.0-16.0); Lymphocyte % 17.4 %; Mean Corpuscular HGB Conc 36 g/dL (31-36); Mean Corpuscular Hemoglobin 35 pg (27-31); Mean Corpuscular Volume 97 fL (80-97); Mean Platelet Volume 7.7 fL (7.4-10.4); Platelet Count 40 10^3/uL (150-450); Red Blood Count 3.37 10^6 /uL (3.70-4.87); Red Cell Distribution Width 16 % (10-15); White Blood Count 6.6 10^3/uL (3.5-10.8)
[2021-10-04 05:42] LABS: Magnesium 2.1 mg/dL (1.9-2.7); Potassium 4.1 mmol/L (3.5-5.0)
[2021-10-04] MEDS: Cholecalciferol (VIT D3) 1,000 unit TAB PO SCH (09:12)
[2021-10-04] MEDS: Insulin GLARGINE 100 un/ml 10 ml VIAL SUBCUT SCH ×2 (09:13→21:14)
[2021-10-04] MEDS: Ondansetron 4 mg VIAL 2 MG/ML 2 ml VIAL IV PRN (10:43)
[2021-10-04] MEDS ORDERED: Iodixanol (CONTRAST) 320 MG/ML 100 ML SDV IV ONE (15:12)
[2021-10-05 05:58] LABS: ABS Eosinophils 0.2 10^3/ul (0-0.6); ABS Lymphocytes 1.2 10^3/ul (1.0-4.8); ABS Monocytes 0.6 10^3/ul (0-0.8); ABS Neutrophils 3.8 10^3/ul (1.5-7.7); Eosinophil % 3.1 %; Hematocrit 31 % (35-47); Hemoglobin 11.1 g/dL (12.0-16.0); Lymphocyte % 19.8 %; Mean Corpuscular HGB Conc 36 g/dL (31-36); Mean Corpuscular Hemoglobin 35 pg (27-31); Mean Corpuscular Volume 97 fL (80-97); Mean Platelet Volume 7.3 fL (7.4-10.4); Platelet Count 45 10^3/uL (150-450); Red Blood Count 3.22 10^6 /uL (3.70-4.87); Red Cell Distribution Width 16 % (10-15); White Blood Count 5.8 10^3/uL (3.5-10.8)
[2021-10-05 06:10] LABS: Calcium 7.9 mg/dL (8.6-10.3); Magnesium 1.6 mg/dL (1.9-2.7); Potassium 3.8 mmol/L (3.5-5.0); eGFR CKD-EPI 76.1 (>60)
[2021-10-05] MEDS: Cholecalciferol (VIT D3) 1,000 unit TAB PO SCH (08:05)
[2021-10-05] MEDS ORDERED: Magnesium Sulfate 2 gm BAG 2 GM/50 ML BAG IVPB ONE (08:20)
[2021-10-05] MEDS: Insulin GLARGINE 100 un/ml 10 ml VIAL SUBCUT SCH ×2 (08:54→20:09)
[2021-10-05] MEDS ORDERED: Polyethylene Glycol 3350 17 GM PACKET PO PRN (11:26)
[2021-10-05] MEDS: Lactulose 30 ml UDC PO SCH ×2 (14:08→20:09)
[2021-10-05] MEDS: Saline NASAL DROPS 0.65% BTL BOTH NARES PRN ×2 (14:09→20:09)
[2021-10-06] MEDS: Lactulose 30 ml UDC PO SCH ×3 (08:47→20:51)
[2021-10-06] MEDS: Insulin GLARGINE 100 un/ml 10 ml VIAL SUBCUT SCH ×2 (08:47→20:52)
[2021-10-06] MEDS: Cholecalciferol (VIT D3) 1,000 unit TAB PO SCH (08:47)
[2021-10-06] MEDS ORDERED: Polyethylene Glycol 3350 17 GM PACKET PO ONE (11:26)
[2021-10-06] MEDS: Saline NASAL DROPS 0.65% BTL BOTH NARES PRN (20:56)
[2021-10-07] MEDS: Insulin GLARGINE 100 un/ml 10 ml VIAL SUBCUT SCH ×2 (08:52→20:17)
[2021-10-07] MEDS: Lactulose 30 ml UDC PO SCH ×3 (08:52→20:16)
[2021-10-07] MEDS: Cholecalciferol (VIT D3) 1,000 unit TAB PO SCH (08:52)
[2021-10-07] MEDS ORDERED: Polyethylene Glycol 3350 17 GM PACKET PO SCH ×2 (15:00→15:30)
[2021-10-07 15:14] LABS: Hematocrit 33 % (35-47); Hemoglobin 11.5 g/dL (12.0-16.0); Mean Corpuscular HGB Conc 35 g/dL (31-36); Mean Corpuscular Hemoglobin 34 pg (27-31); Mean Corpuscular Volume 97 fL (80-97); Red Blood Count 3.37 10^6 /uL (3.70-4.87); Red Cell Distribution Width 16 % (10-15); White Blood Count 6.5 10^3/uL (3.5-10.8)
[2021-10-07] MEDS ORDERED: Polyethylene Glycol 3350 17 GM PACKET PO ONE ×2 (15:31→16:00)
[2021-10-07 15:35] LABS: Albumin 2.3 g/dL (3.2-5.2); Albumin/Globulin Ratio 0.7 (1-3); C Reactive Protein 24.94 mg/L (<8.01); Calcium 8.8 mg/dL (8.6-10.3); Globulin 3.3 g/dL (2-4); Potassium 4.3 mmol/L (3.5-5.0); Total Bilirubin 1.8 mg/dL (0.2-1.0); Total Protein 5.6 g/dL (6.4-8.9); eGFR CKD-EPI 84.5 (>60)
[2021-10-07 15:41] LABS: ABS Eosinophils 0.2 10^3/ul (0-0.6); ABS Lymphocytes 1.5 10^3/ul (1.0-4.8); ABS Monocytes 0.8 10^3/ul (0-0.8); Eosinophil % 2.9 %; Lymphocyte % 23.2 %; Mean Platelet Volume 7.1 fL (7.4-10.4); Nucleated Red Blood Cells % 0.1; Platelet Count 52 10^3/uL (150-450)
[2021-10-08] MEDS: Insulin GLARGINE 100 un/ml 10 ml VIAL SUBCUT SCH (10:23)
[2021-10-08] MEDS: Cholecalciferol (VIT D3) 1,000 unit TAB PO SCH (10:23)
[2021-10-08] MEDS: Lactulose 30 ml UDC PO SCH (10:23)
[2021-10-08 12:24] VITALS: BP 105/60
== END 2021-10-08 13:25 | disposition home or self-care (01) | DRG 391 ==
LOC: EDHOLD 02:12 → ED 02:12 → SUATTDRO 10:24 → MED 14:51 → SUATTDRO 10-04 13:38
PROVIDERS: ADMIT Nurse Practitioner Adult Health; ATTEND Internal Medicine

== ENCOUNTER 2021-11-04 17:30 | Inpatient (IN) ==
[2021-11-04] MEDS ORDERED: Lactated Ringers 1000 ml BAG IV.FLUID IV ONE (18:08)
[2021-11-04 19:01] LABS: Activated Partial Thrombo Time 34.9 seconds (26.0-38.0); INR 1.27 (0.86-1.15)
[2021-11-04 19:05] LABS: ALT 20 U/L (7-52); Albumin 2.4 g/dL (3.2-5.2); Albumin/Globulin Ratio 0.6 (1-3); Alkaline Phosphatase 144 U/L (35-149); Blood Urea Nitrogen 16 mg/dL (6-24); C Reactive Protein 70.66 mg/L (<8.01); CO2 Carbon Dioxide 23 mmol/L (22-32); Calcium 7.9 mg/dL (8.6-10.3); Chloride 99 mmol/L (101-111); Globulin 3.7 g/dL (2-4); Glucose 114 mg/dL (70-100); Sodium 129 mmol/L (135-145); Total Protein 6.1 g/dL (6.4-8.9); eGFR CKD-EPI 83.2 (>60)
[2021-11-04 19:07] LABS: Troponin I 0.01 ng/mL (<0.03)
[2021-11-04 19:28] LABS: ABS Lymphocytes 0.8 10^3/ul (1.0-4.8); ABS Monocytes 0.6 10^3/ul (0-0.8); ABS Neutrophils 5.6 10^3/ul (1.5-7.7); Eosinophil % 0.2 %; Hematocrit 36 % (35-47); Hemoglobin 12.7 g/dL (12.0-16.0); Mean Corpuscular HGB Conc 35 g/dL (31-36); Mean Corpuscular Hemoglobin 34 pg (27-31); Mean Corpuscular Volume 97 fL (80-97); Mean Platelet Volume 9.8 fL (7.4-10.4); Nucleated Red Blood Cells % 0.2; Platelet Count 77 10^3/uL (150-450); Red Blood Count 3.74 10^6 /uL (3.70-4.87); Red Cell Distribution Width 15 % (10-15)
[2021-11-04 20:28] LABS: Anion Gap 7 mmol/L (2-11)
[2021-11-04] MEDS ORDERED: Remdesivir 100 mg Vial 200 MG in NS 0.9% 250 ml 210 ML IV ONE (20:41)
[2021-11-04] MEDS ORDERED: Dextran 70/Hypromellose Tears Eye Drops 15 ml BTL (for Artificials Tears) BOTH EYES PRN (20:42)
[2021-11-04] MEDS ORDERED: fentaNYL 100 mcg/2 ml 50 MCG/ML VIAL IV SLOW PU ONE (20:51)
[2021-11-04] MEDS ORDERED: Dextrose 50% Syringe 50 ml 25 GM/50 ML SYRINGE IV PUSH PRN (21:23)
[2021-11-04] MEDS: Lidocaine Patch REMOVE NOTE PATCH OFF SCH (23:26)
[2021-11-04] MEDS: NS 0.9% 1000 ml BAG 1,000 ML IV SCH (23:27)
[2021-11-05 00:11] LABS: Potassium Redraw 4.8 mmol/L (3.5-5.0)
[2021-11-05] MEDS: fentaNYL 100 mcg/2 ml 50 MCG/ML VIAL IV SLOW PU PRN ×5 (01:39→23:12)
[2021-11-05 07:38] LABS: INR 1.4 (0.86-1.15)
[2021-11-05 07:45] LABS: Albumin/Globulin Ratio 0.7 (1-3); Calcium 7.4 mg/dL (8.6-10.3); Globulin 2.9 g/dL (2-4); Potassium 4.4 mmol/L (3.5-5.0); Total Bilirubin 1.9 mg/dL (0.2-1.0); Total Protein 4.9 g/dL (6.4-8.9); eGFR CKD-EPI 90.1 (>60)
[2021-11-05 07:59] LABS: ABS Lymphocytes 0.7 10^3/ul (1.0-4.8); ABS Monocytes 0.7 10^3/ul (0-0.8); Eosinophil % 0.1 %; Hematocrit 32 % (35-47); Lymphocyte % 7.5 %; Mean Corpuscular HGB Conc 35 g/dL (31-36); Mean Corpuscular Hemoglobin 35 pg (27-31); Mean Corpuscular Volume 98 fL (80-97); Mean Platelet Volume 8.4 fL (7.4-10.4); Nucleated Red Blood Cells % 0.1; Platelet Count 37 10^3/uL (150-450); Red Blood Count 3.21 10^6 /uL (3.70-4.87); Red Cell Distribution Width 15 % (10-15); White Blood Count 9.4 10^3/uL (3.5-10.8)
[2021-11-05] MEDS: Lidocaine PATCH 5% PATCH TRANSDERM SCH (08:21)
[2021-11-05] MEDS: Pantoprazole VIAL 40 MG VIAL IV SCH ×2 (11:28→22:39)
[2021-11-05 12:31] LABS: ABS Eosinophils 0.1 10^3/ul (0-0.6); ABS Lymphocytes 0.7 10^3/ul (1.0-4.8); ABS Monocytes 0.5 10^3/ul (0-0.8); ABS Neutrophils 8.9 10^3/ul (1.5-7.7); Eosinophil % 0.5 %; Hematocrit 34 % (35-47); Hemoglobin 11.6 g/dL (12.0-16.0); Lymphocyte % 7.1 %; Mean Corpuscular HGB Conc 34 g/dL (31-36); Mean Corpuscular Hemoglobin 34 pg (27-31); Mean Corpuscular Volume 99 fL (80-97); Mean Platelet Volume 8.6 fL (7.4-10.4); Nucleated Red Blood Cells % 0.1; Platelet Count 34 10^3/uL (150-450); Red Blood Count 3.43 10^6 /uL (3.70-4.87); Red Cell Distribution Width 15 % (10-15); White Blood Count 10.2 10^3/uL (3.5-10.8)
[2021-11-05] MEDS: NS 0.9% 1000 ml BAG 1,000 ML IV SCH (13:37)
[2021-11-05] MEDS: Remdesivir 100 mg Vial 100 MG in NS 0.9% 250 ml 230 ML IV SCH (22:44)
[2021-11-05] MEDS: Lidocaine Patch REMOVE NOTE PATCH OFF SCH (22:47)
[2021-11-06 07:14] LABS: INR 1.72 (0.86-1.15)
[2021-11-06 07:24] LABS: ABS Eosinophils 0.1 10^3/ul (0-0.6); ABS Lymphocytes 0.9 10^3/ul (1.0-4.8); ABS Monocytes 0.6 10^3/ul (0-0.8); ABS Neutrophils 6.9 10^3/ul (1.5-7.7); Eosinophil % 1.1 %; Hematocrit 30 % (35-47); Hemoglobin 10.4 g/dL (12.0-16.0); Lymphocyte % 10.9 %; Mean Corpuscular HGB Conc 35 g/dL (31-36); Mean Corpuscular Hemoglobin 34 pg (27-31); Mean Corpuscular Volume 98 fL (80-97); Mean Platelet Volume 8.3 fL (7.4-10.4); Platelet Count 42 10^3/uL (150-450); Red Blood Count 3.05 10^6 /uL (3.70-4.87); Red Cell Distribution Width 15 % (10-15); White Blood Count 8.6 10^3/uL (3.5-10.8)
[2021-11-06 07:29] LABS: Calcium 6.9 mg/dL (8.6-10.3); Magnesium 1.3 mg/dL (1.9-2.7); Potassium 3.4 mmol/L (3.5-5.0); eGFR CKD-EPI 88.6 (>60)
[2021-11-06] MEDS ORDERED: Magnesium Sulfate 2 gm BAG 2 GM/50 ML BAG IVPB ONE (08:04)
[2021-11-06] MEDS ORDERED: KCL 20 MEQ/100 ML IVPREMIX 20 MEQ/100 ML BAG IV ONE (08:06)
[2021-11-06] MEDS: Pantoprazole VIAL 40 MG VIAL IV SCH ×2 (08:45→22:23)
[2021-11-06] MEDS: Lidocaine PATCH 5% PATCH TRANSDERM SCH (08:50)
[2021-11-06] MEDS: fentaNYL 100 mcg/2 ml 50 MCG/ML VIAL IV SLOW PU PRN ×3 (09:00→22:57)
[2021-11-06] MEDS ORDERED: Potassium Chlor 20 meq TAB.ER PO ONE (12:08)
[2021-11-06] MEDS: Benzocaine/Menthol LOZ MT PRN (16:30)
[2021-11-06] MEDS: Lidocaine Patch REMOVE NOTE PATCH OFF SCH (22:23)
[2021-11-06] MEDS: Remdesivir 100 mg Vial 100 MG in NS 0.9% 250 ml 230 ML IV SCH (22:26)
[2021-11-07] MEDS: Pantoprazole VIAL 40 MG VIAL IV SCH (07:24)
[2021-11-07] MEDS: Lidocaine PATCH 5% PATCH TRANSDERM SCH (07:24)
[2021-11-07] MEDS: fentaNYL 100 mcg/2 ml 50 MCG/ML VIAL IV SLOW PU PRN ×3 (07:24→19:41)
[2021-11-07] MEDS: Benzocaine/Menthol LOZ MT PRN (07:25)
[2021-11-07 07:43] LABS: ABS Eosinophils 0.1 10^3/ul (0-0.6); ABS Lymphocytes 0.9 10^3/ul (1.0-4.8); ABS Monocytes 0.7 10^3/ul (0-0.8); ABS Neutrophils 4.8 10^3/ul (1.5-7.7); Eosinophil % 1.1 %; Hematocrit 33 % (35-47); Hemoglobin 11.6 g/dL (12.0-16.0); Lymphocyte % 14.1 %; Mean Corpuscular HGB Conc 35 g/dL (31-36); Mean Corpuscular Hemoglobin 35 pg (27-31); Mean Corpuscular Volume 98 fL (80-97); Mean Platelet Volume 8.2 fL (7.4-10.4); Nucleated Red Blood Cells % 0.1; Platelet Count 55 10^3/uL (150-450); Red Blood Count 3.37 10^6 /uL (3.70-4.87); Red Cell Distribution Width 15 % (10-15); White Blood Count 6.5 10^3/uL (3.5-10.8)
[2021-11-07 08:04] LABS: INR 1.99 (0.86-1.15)
[2021-11-07 08:10] LABS: Calcium 7.2 mg/dL (8.6-10.3); Magnesium 1.7 mg/dL (1.9-2.7); Potassium 3.8 mmol/L (3.5-5.0); eGFR CKD-EPI 96.1 (>60)
[2021-11-07] MEDS ORDERED: Magnesium Sulfate 2 gm BAG 2 GM/50 ML BAG IVPB ONE (09:48)
[2021-11-07 13:14] LABS: Urine Appearance Clear; Urine Bilirubin Negative (Negative); Urine Blood Negative (Negative); Urine Color Yellow; Urine Glucose Negative (Negative); Urine Ketones Negative (Negative); Urine Nitrite Negative (Negative); Urine Protein Negative (Negative); Urine Specific Gravity 1.008 (1.002-1.030); Urine Urobilinogen Negative (Negative)
[2021-11-07] MEDS ORDERED: guaiFENesin/CODIENE 100mg/10mg 5 ML UDC PO PRN (21:33)
[2021-11-07] MEDS: Remdesivir 100 mg Vial 100 MG in NS 0.9% 250 ml 230 ML IV SCH (22:00)
[2021-11-07] MEDS: Lidocaine Patch REMOVE NOTE PATCH OFF SCH (22:04)
[2021-11-07] MEDS: Heparin 5000 UNITS/ML 1 mL VIAL SUBCUT SCH (22:10)
[2021-11-08] MEDS: fentaNYL 100 mcg/2 ml 50 MCG/ML VIAL IV SLOW PU PRN ×4 (00:10→21:27)
[2021-11-08] MEDS: Heparin 5000 UNITS/ML 1 mL VIAL SUBCUT SCH (06:08)
[2021-11-08 06:09] LABS: ABS Eosinophils 0.1 10^3/ul (0-0.6); ABS Lymphocytes 0.7 10^3/ul (1.0-4.8); ABS Monocytes 0.7 10^3/ul (0-0.8); ABS Neutrophils 3.2 10^3/ul (1.5-7.7); Eosinophil % 1.9 %; Hematocrit 31 % (35-47); Hemoglobin 10.8 g/dL (12.0-16.0); Lymphocyte % 15.3 %; Mean Corpuscular HGB Conc 35 g/dL (31-36); Mean Corpuscular Hemoglobin 34 pg (27-31); Mean Corpuscular Volume 98 fL (80-97); Mean Platelet Volume 8.4 fL (7.4-10.4); Nucleated Red Blood Cells % 0.1; Platelet Count 45 10^3/uL (150-450); Red Blood Count 3.15 10^6 /uL (3.70-4.87); Red Cell Distribution Width 15 % (10-15); White Blood Count 4.7 10^3/uL (3.5-10.8)
[2021-11-08 06:10] LABS: INR 2.22 (0.86-1.15)
[2021-11-08 06:24] LABS: Albumin 1.8 g/dL (3.2-5.2); Albumin/Globulin Ratio 0.7 (1-3); Calcium 7.2 mg/dL (8.6-10.3); Globulin 2.7 g/dL (2-4); Magnesium 1.8 mg/dL (1.9-2.7); Potassium 3.8 mmol/L (3.5-5.0); Total Bilirubin 1.6 mg/dL (0.2-1.0); Total Protein 4.5 g/dL (6.4-8.9); eGFR CKD-EPI 98.3 (>60)
[2021-11-08] MEDS ORDERED: Magnesium Sulfate IV 3 GM in NS 0.9% 100 ml BAG 100 ML IVPB ONE (07:15)
[2021-11-08] MEDS: Lidocaine PATCH 5% PATCH TRANSDERM SCH (08:35)
[2021-11-08] MEDS: Insulin GLARGINE 100 un/ml 10 ml VIAL SUBCUT SCH (08:36)
[2021-11-08] MEDS: Lidocaine Patch REMOVE NOTE PATCH OFF SCH (21:24)
[2021-11-08] MEDS: Remdesivir 100 mg Vial 100 MG in NS 0.9% 250 ml 230 ML IV SCH (21:26)
[2021-11-09 00:45] LABS: ABS Basophils 0.1 10^3/ul (0-0.2); ABS Eosinophils 0.2 10^3/ul (0-0.6); ABS Lymphocytes 1.3 10^3/ul (1.0-4.8); ABS Neutrophils 3.9 10^3/ul (1.5-7.7); Eosinophil % 3.1 %; Hematocrit 34 % (35-47); Hemoglobin 11.6 g/dL (12.0-16.0); Mean Corpuscular HGB Conc 34 g/dL (31-36); Mean Corpuscular Hemoglobin 34 pg (27-31); Mean Corpuscular Volume 98 fL (80-97); Mean Platelet Volume 8.2 fL (7.4-10.4); Nucleated Red Blood Cells % 0.1; Platelet Count 75 10^3/uL (150-450); Red Blood Count 3.44 10^6 /uL (3.70-4.87); Red Cell Distribution Width 15 % (10-15); White Blood Count 6.4 10^3/uL (3.5-10.8)
[2021-11-09 01:01] LABS: Albumin/Globulin Ratio 0.6 (1-3); Calcium 7.6 mg/dL (8.6-10.3); Globulin 3.2 g/dL (2-4); Potassium 3.4 mmol/L (3.5-5.0); Total Bilirubin 1.7 mg/dL (0.2-1.0); Total Protein 5.2 g/dL (6.4-8.9); eGFR CKD-EPI 95.7 (>60)
[2021-11-09 01:02] LABS: Troponin I 0.01 ng/mL (<0.03)
[2021-11-09] MEDS ORDERED: Potassium Chlor 20 meq TAB.ER PO ONE (01:23)
[2021-11-09] MEDS ORDERED: Iodixanol (CONTRAST) 320 MG/ML 100 ML SDV IV ONE (01:53)
[2021-11-09 04:34] LABS: INR 2.07 (0.86-1.15)
[2021-11-09 06:34] LABS: Hematocrit 31 % (35-47); Hemoglobin 10.7 g/dL (12.0-16.0); Mean Corpuscular HGB Conc 35 g/dL (31-36); Mean Corpuscular Hemoglobin 34 pg (27-31); Mean Corpuscular Volume 97 fL (80-97); Mean Platelet Volume 7.7 fL (7.4-10.4); Platelet Count 58 10^3/uL (150-450); Red Blood Count 3.17 10^6 /uL (3.70-4.87); Red Cell Distribution Width 15 % (10-15); White Blood Count 4.3 10^3/uL (3.5-10.8)
[2021-11-09 06:53] LABS: Troponin I 0.73 ng/mL (<0.03)
[2021-11-09 06:57] LABS: Anion Gap 1 mmol/L (2-11); Blood Urea Nitrogen 8 mg/dL (6-24); CO2 Carbon Dioxide 26 mmol/L (22-32); Calcium 7.2 mg/dL (8.6-10.3); Chloride 109 mmol/L (101-111); Glucose 109 mg/dL (70-100); Magnesium 1.6 mg/dL (1.9-2.7); Potassium 4.4 mmol/L (3.5-5.0); Sodium 136 mmol/L (135-145); eGFR CKD-EPI 97.9 (>60)
[2021-11-09] MEDS: Lidocaine PATCH 5% PATCH TRANSDERM SCH (08:32)
[2021-11-09] MEDS: Insulin GLARGINE 100 un/ml 10 ml VIAL SUBCUT SCH (08:32)
[2021-11-09] MEDS: fentaNYL 100 mcg/2 ml 50 MCG/ML VIAL IV SLOW PU PRN ×3 (08:34→22:45)
[2021-11-09 10:49] LABS: Troponin I 0.74 ng/mL (<0.03)
[2021-11-09] MEDS ORDERED: Enoxaparin 40 MG/0.4 ML SYR SUBCUT SCH (12:00)
[2021-11-09 13:34] LABS: Troponin I 0.54 ng/mL (<0.03)
[2021-11-09] MEDS: Lidocaine Patch REMOVE NOTE PATCH OFF SCH (21:51)
[2021-11-10 05:14] LABS: ABS Eosinophils 0.1 10^3/ul (0-0.6); ABS Lymphocytes 0.7 10^3/ul (1.0-4.8); ABS Monocytes 0.7 10^3/ul (0-0.8); ABS Neutrophils 3.2 10^3/ul (1.5-7.7); Eosinophil % 2.7 %; Hematocrit 33 % (35-47); Hemoglobin 11.2 g/dL (12.0-16.0); Lymphocyte % 14.5 %; Mean Corpuscular HGB Conc 34 g/dL (31-36); Mean Corpuscular Hemoglobin 33 pg (27-31); Mean Corpuscular Volume 97 fL (80-97); Mean Platelet Volume 7.8 fL (7.4-10.4); Nucleated Red Blood Cells % 0.1; Platelet Count 65 10^3/uL (150-450); Red Blood Count 3.37 10^6 /uL (3.70-4.87); Red Cell Distribution Width 15 % (10-15); White Blood Count 4.8 10^3/uL (3.5-10.8)
[2021-11-10 05:26] LABS: Albumin 1.9 g/dL (3.2-5.2); Albumin/Globulin Ratio 0.6 (1-3); Calcium 7.4 mg/dL (8.6-10.3); Magnesium 1.5 mg/dL (1.9-2.7); Potassium 4.3 mmol/L (3.5-5.0); Total Bilirubin 1.8 mg/dL (0.2-1.0); Total Protein 4.9 g/dL (6.4-8.9); eGFR CKD-EPI 97.9 (>60)
[2021-11-10] MEDS: Insulin GLARGINE 100 un/ml 10 ml VIAL SUBCUT SCH (08:09)
[2021-11-10] MEDS: fentaNYL 100 mcg/2 ml 50 MCG/ML VIAL IV SLOW PU PRN ×3 (08:10→22:17)
[2021-11-10] MEDS: Lidocaine PATCH 5% PATCH TRANSDERM SCH (08:10)
[2021-11-10] MEDS ORDERED: Enoxaparin 40 MG/0.4 ML SYR SUBCUT SCH (12:00)
[2021-11-10] MEDS: Ondansetron ODT 4 mg TAB 4 MG TAB PO PRN (13:39)
[2021-11-10] MEDS: Lidocaine Patch REMOVE NOTE PATCH OFF SCH (22:17)
[2021-11-11] MEDS: fentaNYL 100 mcg/2 ml 50 MCG/ML VIAL IV SLOW PU PRN ×4 (03:58→23:07)
[2021-11-11 06:37] LABS: Hematocrit 31 % (35-47); Hemoglobin 10.8 g/dL (12.0-16.0); Mean Corpuscular HGB Conc 35 g/dL (31-36); Mean Corpuscular Hemoglobin 34 pg (27-31); Mean Corpuscular Volume 98 fL (80-97); Mean Platelet Volume 7.7 fL (7.4-10.4); Platelet Count 56 10^3/uL (150-450); Red Blood Count 3.16 10^6 /uL (3.70-4.87); Red Cell Distribution Width 15 % (10-15); White Blood Count 3.9 10^3/uL (3.5-10.8)
[2021-11-11 06:52] LABS: Blood Urea Nitrogen 8 mg/dL (6-24); CO2 Carbon Dioxide 31 mmol/L (22-32); Calcium 7.5 mg/dL (8.6-10.3); Chloride 104 mmol/L (101-111); Glucose 134 mg/dL (70-100); Magnesium 1.6 mg/dL (1.9-2.7); Potassium 4.4 mmol/L (3.5-5.0); Sodium 135 mmol/L (135-145); eGFR CKD-EPI 98.7 (>60)
[2021-11-11] MEDS: Insulin GLARGINE 100 un/ml 10 ml VIAL SUBCUT SCH (10:03)
[2021-11-11] MEDS: Lidocaine PATCH 5% PATCH TRANSDERM SCH (10:08)
[2021-11-11] MEDS ORDERED: Enoxaparin 40 MG/0.4 ML SYR SUBCUT SCH (12:00)
[2021-11-11] MEDS: Lidocaine Patch REMOVE NOTE PATCH OFF SCH (22:44)
[2021-11-12] MEDS: Insulin GLARGINE 100 un/ml 10 ml VIAL SUBCUT SCH (08:37)
[2021-11-12] MEDS: fentaNYL 100 mcg/2 ml 50 MCG/ML VIAL IV SLOW PU PRN ×4 (08:52→22:10)
[2021-11-12 11:33] LABS: Troponin I 0.04 ng/mL (<0.03)
[2021-11-12 11:45] LABS: ABS Eosinophils 0.1 10^3/ul (0-0.6); ABS Lymphocytes 0.7 10^3/ul (1.0-4.8); ABS Monocytes 0.6 10^3/ul (0-0.8); ABS Neutrophils 3.1 10^3/ul (1.5-7.7); Eosinophil % 2.7 %; Hematocrit 32 % (35-47); Hemoglobin 10.8 g/dL (12.0-16.0); Lymphocyte % 16.1 %; Mean Corpuscular HGB Conc 34 g/dL (31-36); Mean Corpuscular Hemoglobin 34 pg (27-31); Mean Corpuscular Volume 100 fL (80-97); Mean Platelet Volume 8.4 fL (7.4-10.4); Nucleated Red Blood Cells % 0.1; Platelet Count 58 10^3/uL (150-450); Red Blood Count 3.21 10^6 /uL (3.70-4.87); Red Cell Distribution Width 15 % (10-15); White Blood Count 4.6 10^3/uL (3.5-10.8)
[2021-11-12 11:52] LABS: INR 1.78 (0.86-1.15)
[2021-11-12 11:57] LABS: ALT 13 U/L (7-52); AST 35 U/L (13-39); Albumin 1.7 g/dL (3.2-5.2); Albumin/Globulin Ratio 0.5 (1-3); Alkaline Phosphatase 127 U/L (35-149); Blood Urea Nitrogen 10 mg/dL (6-24); CO2 Carbon Dioxide 32 mmol/L (22-32); Calcium 7.9 mg/dL (8.6-10.3); Chloride 102 mmol/L (101-111); Globulin 3.1 g/dL (2-4); Glucose 185 mg/dL (70-100); Magnesium 1.4 mg/dL (1.9-2.7); Potassium 4.6 mmol/L (3.5-5.0); Sodium 133 mmol/L (135-145); Total Protein 4.8 g/dL (6.4-8.9); eGFR CKD-EPI 96.1 (>60)
[2021-11-12] MEDS ORDERED: Enoxaparin 40 MG/0.4 ML SYR SUBCUT SCH (13:00)
[2021-11-12] MEDS: Lidocaine PATCH 5% PATCH TRANSDERM SCH (15:56)
[2021-11-12] MEDS ORDERED: Saline NASAL SPRAY 0.65% BTL BOTH NARES PRN (18:36)
[2021-11-12] MEDS: Ondansetron ODT 4 mg TAB 4 MG TAB PO PRN (21:22)
[2021-11-12] MEDS: Lidocaine Patch REMOVE NOTE PATCH OFF SCH (21:58)
[2021-11-13 06:46] LABS: Hematocrit 31 % (35-47); Hemoglobin 10.7 g/dL (12.0-16.0); Mean Corpuscular HGB Conc 34 g/dL (31-36); Mean Corpuscular Hemoglobin 34 pg (27-31); Mean Corpuscular Volume 99 fL (80-97); Platelet Count 56 10^3/uL (150-450); Red Blood Count 3.15 10^6 /uL (3.70-4.87); Red Cell Distribution Width 15 % (10-15); White Blood Count 3.7 10^3/uL (3.5-10.8)
[2021-11-13 06:56] LABS: ALT 12 U/L (7-52); AST 34 U/L (13-39); Albumin 1.7 g/dL (3.2-5.2); Albumin/Globulin Ratio 0.5 (1-3); Alkaline Phosphatase 129 U/L (35-149); Blood Urea Nitrogen 9 mg/dL (6-24); CO2 Carbon Dioxide 34 mmol/L (22-32); Calcium 7.7 mg/dL (8.6-10.3); Chloride 102 mmol/L (101-111); Globulin 3.3 g/dL (2-4); Glucose 94 mg/dL (70-100); Magnesium 1.4 mg/dL (1.9-2.7); Potassium 4.7 mmol/L (3.5-5.0); Sodium 136 mmol/L (135-145); eGFR CKD-EPI 97.9 (>60)
[2021-11-13 07:15] LABS: Troponin I 0.03 ng/mL (<0.03)
[2021-11-13] MEDS ORDERED: NS 0.9% IVPB ONE ×3 (09:00→17:00)
[2021-11-13] MEDS ORDERED: MAGNESIUM SULFATE IVPB ONE ×3 (09:00→17:00)
[2021-11-13] MEDS: Insulin GLARGINE 100 un/ml 10 ml VIAL SUBCUT SCH (09:39)
[2021-11-13] MEDS: Lidocaine PATCH 5% PATCH TRANSDERM SCH (10:00)
[2021-11-13] MEDS ORDERED: Magnesium Sulfate 2 GM IV (Premix) IVPB ONE (16:01)
[2021-11-13] MEDS: fentaNYL 100 mcg/2 ml 50 MCG/ML VIAL IV SLOW PU PRN ×2 (16:40→20:49)
[2021-11-13] MEDS ORDERED: Magnesium Sulfate IV 0.5 GM/ML 2 ml VIAL (1 gm) IVPB ONE (23:00)
[2021-11-13] MEDS: Lidocaine Patch REMOVE NOTE PATCH OFF SCH (23:50)
[2021-11-14 08:27] LABS: Albumin 1.7 g/dL (3.2-5.2); Calcium 7.5 mg/dL (8.6-10.3); Hematocrit 30 % (35-47); Hemoglobin 10.4 g/dL (12.0-16.0); Magnesium 1.9 mg/dL (1.9-2.7); Mean Corpuscular HGB Conc 34 g/dL (31-36); Mean Corpuscular Hemoglobin 34 pg (27-31); Mean Corpuscular Volume 100 fL (80-97); Mean Platelet Volume 8.1 fL (7.4-10.4); Platelet Count 52 10^3/uL (150-450); Potassium 4.4 mmol/L (3.5-5.0); Red Blood Count 3.01 10^6 /uL (3.70-4.87); Red Cell Distribution Width 15 % (10-15); Total Bilirubin 1.5 mg/dL (0.2-1.0); White Blood Count 3.6 10^3/uL (3.5-10.8)
[2021-11-14 08:33] LABS: Albumin/Globulin Ratio 0.5 (1-3); Globulin 3.3 g/dL (2-4); eGFR CKD-EPI 97.9 (>60)
[2021-11-14] MEDS: Lidocaine PATCH 5% PATCH TRANSDERM SCH (08:55)
[2021-11-14] MEDS: Insulin GLARGINE 100 un/ml 10 ml VIAL SUBCUT SCH (09:09)
[2021-11-14] MEDS ORDERED: Aminophylline 25 MG/ML VIAL ONE (10:44)
[2021-11-14] MEDS ORDERED: Regadenoson 0.4 MG/5 ML SYRINGE ONE (10:44)
[2021-11-14] MEDS: fentaNYL 100 mcg/2 ml 50 MCG/ML VIAL IV SLOW PU PRN ×2 (13:43→21:53)
[2021-11-14] MEDS: Lidocaine Patch REMOVE NOTE PATCH OFF SCH (22:03)
[2021-11-15 06:51] LABS: Calcium 7.3 mg/dL (8.6-10.3); Magnesium 1.6 mg/dL (1.9-2.7); Phosphorus 2.4 mg/dL (2.5-5.0); Potassium 4.6 mmol/L (3.5-5.0); eGFR CKD-EPI 97.9 (>60)
[2021-11-15] MEDS: fentaNYL 100 mcg/2 ml 50 MCG/ML VIAL IV SLOW PU PRN ×2 (07:54→12:10)
[2021-11-15] MEDS: Insulin GLARGINE 100 un/ml 10 ml VIAL SUBCUT SCH (07:54)
[2021-11-15] MEDS: Lidocaine PATCH 5% PATCH TRANSDERM SCH (07:55)
[2021-11-15 09:41] VITALS: BP 98/43
== END 2021-11-15 15:20 | disposition home or self-care (01) | DRG 371 ==
LOC: MED 17:30 → ED 17:30 → SUATTDRO 22:51 → MED 23:00 → SUATTDRO 11-05 16:00
PROVIDERS: ADMIT Internal Medicine; ATTEND Internal Medicine

== ENCOUNTER 2021-12-04 12:29 | Inpatient (IN) ==
[2021-12-04 15:46] LABS: ABS Lymphocytes 0.7 10^3/ul (1.0-4.8); ABS Monocytes 1.3 10^3/ul (0-0.8); ABS Neutrophils 11.8 10^3/ul (1.5-7.7); Eosinophil % 0.2 %; Hematocrit 36 % (35-47); Hemoglobin 12.2 g/dL (12.0-16.0); Lymphocyte % 4.9 %; Mean Corpuscular HGB Conc 34 g/dL (31-36); Mean Corpuscular Hemoglobin 34 pg (27-31); Mean Corpuscular Volume 100 fL (80-97); Mean Platelet Volume 9.2 fL (7.4-10.4); Platelet Count 62 10^3/uL (150-450); Red Blood Count 3.59 10^6 /uL (3.70-4.87); Red Cell Distribution Width 16 % (10-15); White Blood Count 13.8 10^3/uL (3.5-10.8)
[2021-12-04 16:31] LABS: Albumin 2.1 g/dL (3.2-5.2); Calcium 8.4 mg/dL (8.6-10.3); Potassium 4.2 mmol/L (3.5-5.0); Total Bilirubin 2.9 mg/dL (0.2-1.0)
[2021-12-04 16:37] LABS: Albumin/Globulin Ratio 0.6 (1-3); Globulin 3.8 g/dL (2-4); Total Protein 5.9 g/dL (6.4-8.9); eGFR CKD-EPI 61.7 (>60)
[2021-12-04] MEDS ORDERED: Iodixanol (CONTRAST) 320 MG/ML 100 ML SDV IV ONE (17:05)
[2021-12-04] MEDS ORDERED: Dextrose 50% Syringe 50 ml 25 GM/50 ML SYRINGE IV PUSH PRN (21:19)
[2021-12-05] MEDS ORDERED: Lidocaine PATCH 5% PATCH TRANSDERM SCH (01:00)
[2021-12-05] MEDS: Insulin GLARGINE 100 un/ml 10 ml VIAL SUBCUT SCH ×2 (02:04→21:05)
[2021-12-05] MEDS: Lidocaine PATCH 5% PATCH TRANSDERM SCH ×2 (02:05→08:06)
[2021-12-05] MEDS ORDERED: NS 0.9% 500 ml BAG 500 ML IV ONE (03:06)
[2021-12-05] MEDS: NS 0.9% 1000 ml BAG 1,000 ML IV SCH ×2 (04:06→12:29)
[2021-12-05 08:33] LABS: ABS Eosinophils 0.3 10^3/ul (0-0.6); ABS Lymphocytes 1.4 10^3/ul (1.0-4.8); ABS Monocytes 0.7 10^3/ul (0-0.8); ABS Neutrophils 5.5 10^3/ul (1.5-7.7); Eosinophil % 3.5 %; Hematocrit 35 % (35-47); Lymphocyte % 17.5 %; Mean Corpuscular HGB Conc 34 g/dL (31-36); Mean Corpuscular Hemoglobin 34 pg (27-31); Mean Corpuscular Volume 98 fL (80-97); Mean Platelet Volume 8.3 fL (7.4-10.4); Nucleated Red Blood Cells % 0.1; Platelet Count 60 10^3/uL (150-450); Red Blood Count 3.55 10^6 /uL (3.70-4.87); Red Cell Distribution Width 16 % (10-15); White Blood Count 7.9 10^3/uL (3.5-10.8)
[2021-12-05 08:35] LABS: INR 1.56 (0.86-1.15)
[2021-12-05 08:45] LABS: Albumin/Globulin Ratio 0.5 (1-3); Calcium 8.2 mg/dL (8.6-10.3); Globulin 3.7 g/dL (2-4); Total Bilirubin 2.2 mg/dL (0.2-1.0); Total Protein 5.7 g/dL (6.4-8.9); eGFR CKD-EPI 69.1 (>60)
[2021-12-05 08:50] LABS: Urine Appearance Turbid; Urine Bilirubin Negative (Negative); Urine Blood Negative (Negative); Urine Color Amber; Urine Glucose Negative (Negative); Urine Ketones Negative (Negative); Urine Nitrite Negative (Negative); Urine Protein Negative (Negative); Urine Specific Gravity 1.026 (1.002-1.030); Urine Urobilinogen Negative (Negative)
[2021-12-05 08:54] LABS: Urine Bacteria 1+ (Absent); Urine Red Blood Cell Trace(0-2/hpf) (Absent); Urine Squamous Epithelial Cell Present (Absent); Urine White Blood Cell 3+(>20/hpf) (Absent)
[2021-12-05] MEDS: Lidocaine Patch REMOVE NOTE PATCH OFF SCH (21:06)
[2021-12-06 06:05] LABS: Hematocrit 31 % (35-47); Hemoglobin 10.6 g/dL (12.0-16.0); Mean Corpuscular HGB Conc 35 g/dL (31-36); Mean Corpuscular Hemoglobin 34 pg (27-31); Mean Corpuscular Volume 98 fL (80-97); Mean Platelet Volume 8.8 fL (7.4-10.4); Platelet Count 58 10^3/uL (150-450); Red Blood Count 3.12 10^6 /uL (3.70-4.87); Red Cell Distribution Width 16 % (10-15); White Blood Count 5.5 10^3/uL (3.5-10.8)
[2021-12-06 06:22] LABS: Calcium 7.6 mg/dL (8.6-10.3); Magnesium 1.7 mg/dL (1.9-2.7); eGFR CKD-EPI 93.1 (>60)
[2021-12-06] MEDS: Lidocaine PATCH 5% PATCH TRANSDERM SCH (08:12)
[2021-12-06] MEDS ORDERED: Cefepime ADVAN 1 GM in NS 0.9% 50 ML 50 ML IVPB SCH (14:00)
[2021-12-06] MEDS: Cefepime 1 GM in Dextrose 1 GM/50 ML BAG IV SCH (18:07)
[2021-12-06] MEDS: Insulin GLARGINE 100 un/ml 10 ml VIAL SUBCUT SCH (20:32)
[2021-12-06] MEDS: Lidocaine Patch REMOVE NOTE PATCH OFF SCH (23:55)
[2021-12-07] MEDS: Saline NASAL SPRAY 0.65% BTL BOTH NARES PRN (03:22)
[2021-12-07] MEDS: Cefepime 1 GM in Dextrose 1 GM/50 ML BAG IV SCH ×2 (04:56→17:25)
[2021-12-07 06:53] LABS: Magnesium 1.6 mg/dL (1.9-2.7); Potassium 4.2 mmol/L (3.5-5.0); eGFR CKD-EPI 78.4 (>60)
[2021-12-07 06:54] LABS: Hematocrit 32 % (35-47); Hemoglobin 10.9 g/dL (12.0-16.0); Mean Corpuscular HGB Conc 35 g/dL (31-36); Mean Corpuscular Hemoglobin 34 pg (27-31); Mean Corpuscular Volume 99 fL (80-97); Mean Platelet Volume 8.3 fL (7.4-10.4); Platelet Count 51 10^3/uL (150-450); Red Blood Count 3.19 10^6 /uL (3.70-4.87); Red Cell Distribution Width 16 % (10-15); White Blood Count 4.7 10^3/uL (3.5-10.8)
[2021-12-07] MEDS: Lidocaine PATCH 5% PATCH TRANSDERM SCH (08:13)
[2021-12-07] MEDS: Insulin GLARGINE 100 un/ml 10 ml VIAL SUBCUT SCH (21:28)
[2021-12-08] MEDS: Cefepime 1 GM in Dextrose 1 GM/50 ML BAG IV SCH ×2 (04:16→16:36)
[2021-12-08] MEDS: Lidocaine Patch REMOVE NOTE PATCH OFF SCH ×2 (04:16→20:32)
[2021-12-08] MEDS: Saline NASAL SPRAY 0.65% BTL BOTH NARES PRN (04:34)
[2021-12-08 05:35] LABS: Hematocrit 32 % (35-47); Hemoglobin 10.9 g/dL (12.0-16.0); Mean Corpuscular HGB Conc 34 g/dL (31-36); Mean Corpuscular Hemoglobin 34 pg (27-31); Mean Corpuscular Volume 98 fL (80-97); Mean Platelet Volume 7.9 fL (7.4-10.4); Platelet Count 50 10^3/uL (150-450); Red Blood Count 3.23 10^6 /uL (3.70-4.87); Red Cell Distribution Width 16 % (10-15); White Blood Count 4.6 10^3/uL (3.5-10.8)
[2021-12-08 05:43] LABS: Calcium 8.3 mg/dL (8.6-10.3); Magnesium 1.4 mg/dL (1.9-2.7); eGFR CKD-EPI 97.5 (>60)
[2021-12-08] MEDS ORDERED: Magnesium Sulfate IV 3 GM in NS 0.9% 100 ml BAG 100 ML IVPB ONE (07:44)
[2021-12-08] MEDS ORDERED: Magnesium Sulfate 2 GM IV (Premix) IVPB ONE (08:00)
[2021-12-08] MEDS: Lidocaine PATCH 5% PATCH TRANSDERM SCH (08:12)
[2021-12-08] MEDS ORDERED: Magnesium Sulfate 1 GM IV 1 GM/100 ML BAG IV ONE (09:00)
[2021-12-08] MEDS ORDERED: COVID-19 VACCINE, MRNA(MODERNA)/PF 100 MCG/0.5 ML IM ONE (14:48)
[2021-12-08] MEDS: Ondansetron 4 mg VIAL 2 MG/ML 2 ml VIAL IV PRN (19:30)
[2021-12-08] MEDS: Insulin GLARGINE 100 un/ml 10 ml VIAL SUBCUT SCH (20:30)
[2021-12-09] MEDS: Ondansetron 4 mg VIAL 2 MG/ML 2 ml VIAL IV PRN ×2 (02:36→13:10)
[2021-12-09 06:21] LABS: Calcium 8.4 mg/dL (8.6-10.3); Magnesium 1.6 mg/dL (1.9-2.7); Potassium 4.5 mmol/L (3.5-5.0); eGFR CKD-EPI 85.8 (>60)
[2021-12-09 06:47] LABS: Hematocrit 34 % (35-47); Hemoglobin 11.4 g/dL (12.0-16.0); Mean Corpuscular HGB Conc 34 g/dL (31-36); Mean Corpuscular Hemoglobin 34 pg (27-31); Mean Corpuscular Volume 100 fL (80-97); Platelet Count 48 10^3/uL (150-450); Red Blood Count 3.35 10^6 /uL (3.70-4.87); Red Cell Distribution Width 17 % (10-15)
[2021-12-09 07:07] LABS: Mean Platelet Volume 8.3 fL (7.4-10.4)
[2021-12-09] MEDS: Saline NASAL SPRAY 0.65% BTL BOTH NARES PRN (09:03)
[2021-12-09] MEDS: Lidocaine PATCH 5% PATCH TRANSDERM SCH (09:03)
[2021-12-09 12:41] VITALS: BP 98/44
== END 2021-12-09 13:30 | disposition home or self-care (01) | DRG 871 ==
LOC: EDHOLD 12:29 → ED 12:29 → EDHOLD 23:14 → MEDTELE 12-05 01:03 → SUATTDRO 12-05 15:12
PROVIDERS: ADMIT Internal Medicine; ATTEND Internal Medicine

== ENCOUNTER 2021-12-19 14:13 | Inpatient (IN) ==
[2021-12-19 15:39] LABS: ABS Eosinophils 0.2 10^3/ul (0-0.6); ABS Lymphocytes 0.7 10^3/ul (1.0-4.8); ABS Monocytes 0.8 10^3/ul (0-0.8); ABS Neutrophils 6.1 10^3/ul (1.5-7.7); Eosinophil % 2.1 %; Hematocrit 36 % (35-47); Hemoglobin 12.2 g/dL (12.0-16.0); Lymphocyte % 8.6 %; Mean Corpuscular HGB Conc 34 g/dL (31-36); Mean Corpuscular Hemoglobin 34 pg (27-31); Mean Corpuscular Volume 100 fL (80-97); Mean Platelet Volume 7.9 fL (7.4-10.4); Platelet Count 76 10^3/uL (150-450); Red Blood Count 3.58 10^6 /uL (3.70-4.87); Red Cell Distribution Width 18 % (10-15); White Blood Count 7.7 10^3/uL (3.5-10.8)
[2021-12-19 15:50] LABS: INR 1.85 (0.86-1.15)
[2021-12-19] MEDS ORDERED: LoraTADine 10 mg TAB (NF) PO ONE (15:53)
[2021-12-19 15:56] LABS: Albumin 2.3 g/dL (3.2-5.2); Albumin/Globulin Ratio 0.6 (1-3); Calcium 8.3 mg/dL (8.6-10.3); Globulin 3.9 g/dL (2-4); Potassium 3.1 mmol/L (3.5-5.0); Total Protein 6.2 g/dL (6.4-8.9); eGFR CKD-EPI 56.3 (>60)
[2021-12-19 16:21] LABS: Direct Bilirubin 15.8 mg/dL (0.03-0.18)
[2021-12-19 16:25] LABS: Indirect Bilirubin 5.9 mg/dL (0.3-1.0); Total Bilirubin 21.7 mg/dL (0.2-1.0)
[2021-12-19 19:07] LABS: Troponin I 0.01 ng/mL (<0.03)
[2021-12-19] MEDS ORDERED: Potassium Chlor 20 meq TAB.ER PO ONE (21:04)
[2021-12-19] MEDS: Enoxaparin 40 MG/0.4 ML SYR SUBCUT SCH (21:19)
[2021-12-19] MEDS ORDERED: Ondansetron ODT 4 mg TAB 4 MG TAB PO PRN (21:26)
[2021-12-19 21:33] LABS: Magnesium 1.7 mg/dL (1.9-2.7)
[2021-12-19] MEDS ORDERED: Dextrose 50% Syringe 50 ml 25 GM/50 ML SYRINGE IV PUSH PRN (21:39)
[2021-12-19] MEDS ORDERED: Magnesium Sulfate 2 gm BAG 2 GM/50 ML BAG IVPB ONE (21:46)
[2021-12-19] MEDS ORDERED: Lactulose 30 ml UDC PO PRN (21:52)
[2021-12-19] MEDS: Insulin GLARGINE 100 un/ml 10 ml VIAL SUBCUT SCH (22:58)
[2021-12-20] MEDS ORDERED: Dextran 70/Hypromellose Tears Eye Drops 15 ml BTL (for Artificials Tears) BOTH EYES PRN (00:11)
[2021-12-20] MEDS ORDERED: Cholestyramine Resin 4 GM POWDER PO ONE (03:06)
[2021-12-20] MEDS ORDERED: Cholestyramine Resin 4 GM POWDER ONE (03:16)
[2021-12-20 07:42] LABS: Albumin 1.9 g/dL (3.2-5.2); Albumin/Globulin Ratio 0.6 (1-3); Calcium 7.8 mg/dL (8.6-10.3); Globulin 3.4 g/dL (2-4); Potassium 4.1 mmol/L (3.5-5.0); Total Protein 5.3 g/dL (6.4-8.9); eGFR CKD-EPI 60.3 (>60)
[2021-12-20 07:50] LABS: Magnesium 2.2 mg/dL (1.9-2.7); Total Bilirubin 19.1 mg/dL (0.2-1.0)
[2021-12-20 07:55] LABS: Hematocrit 32 % (35-47); Hemoglobin 11.1 g/dL (12.0-16.0); Mean Corpuscular HGB Conc 34 g/dL (31-36); Mean Corpuscular Hemoglobin 34 pg (27-31); Mean Corpuscular Volume 100 fL (80-97); Mean Platelet Volume 8.2 fL (7.4-10.4); Platelet Count 68 10^3/uL (150-450); Red Blood Count 3.23 10^6 /uL (3.70-4.87); Red Cell Distribution Width 18 % (10-15); White Blood Count 6.8 10^3/uL (3.5-10.8)
[2021-12-20] MEDS: Cholecalciferol (VIT D3) 1,000 unit TAB PO SCH (08:47)
[2021-12-20] MEDS ORDERED: Lidocaine PATCH 5% PATCH TRANSDERM SCH (09:00)
[2021-12-20] MEDS: Enoxaparin 40 MG/0.4 ML SYR SUBCUT SCH (20:54)
[2021-12-20] MEDS ORDERED: Lidocaine Patch REMOVE NOTE PATCH OFF SCH (21:00)
[2021-12-20] MEDS: Cholestyramine Resin 4 GM POWDER PO SCH (21:07)
[2021-12-20] MEDS: Insulin GLARGINE 100 un/ml 10 ml VIAL SUBCUT SCH (21:10)
[2021-12-20 22:35] LABS: Urine Appearance Cloudy; Urine Bilirubin 2+ (Negative); Urine Blood 1+ (Negative); Urine Color Amber; Urine Glucose 1+(50 mg/dL) (Negative); Urine Ketones Negative (Negative); Urine Nitrite Negative (Negative); Urine Protein Negative (Negative); Urine Specific Gravity 1.019 (1.002-1.030); Urine Urobilinogen Positive (Negative)
[2021-12-20 22:41] LABS: Urine Bacteria 1+ (Absent); Urine Red Blood Cell 1+(3-5/hpf) (Absent); Urine Squamous Epithelial Cell Present (Absent); Urine White Blood Cell 2+(11-20/hpf) (Absent)
[2021-12-21 05:48] LABS: ABS Eosinophils 0.2 10^3/ul (0-0.6); ABS Lymphocytes 0.9 10^3/ul (1.0-4.8); ABS Monocytes 0.7 10^3/ul (0-0.8); ABS Neutrophils 4.4 10^3/ul (1.5-7.7); Eosinophil % 3.9 %; Hematocrit 30 % (35-47); Hemoglobin 10.5 g/dL (12.0-16.0); Lymphocyte % 14.9 %; Mean Corpuscular HGB Conc 35 g/dL (31-36); Mean Corpuscular Hemoglobin 35 pg (27-31); Mean Corpuscular Volume 100 fL (80-97); Mean Platelet Volume 8.1 fL (7.4-10.4); Platelet Count 66 10^3/uL (150-450); Red Blood Count 3.03 10^6 /uL (3.70-4.87); Red Cell Distribution Width 18 % (10-15); White Blood Count 6.3 10^3/uL (3.5-10.8)
[2021-12-21 05:50] LABS: INR 1.86 (0.86-1.15)
[2021-12-21 06:06] LABS: Albumin 1.9 g/dL (3.2-5.2); Albumin/Globulin Ratio 0.6 (1-3); Calcium 7.9 mg/dL (8.6-10.3); Total Protein 4.9 g/dL (6.4-8.9); eGFR CKD-EPI 40.5 (>60)
[2021-12-21 06:08] LABS: Total Bilirubin 20.1 mg/dL (0.2-1.0)
[2021-12-21 06:27] LABS: Direct Bilirubin 15.2 mg/dL (0.03-0.18); Indirect Bilirubin 4.9 mg/dL (0.3-1.0)
[2021-12-21] MEDS: Lidocaine PATCH 5% PATCH TRANSDERM SCH (09:57)
[2021-12-21] MEDS: Cholestyramine Resin 4 GM POWDER PO SCH ×2 (09:57→20:24)
[2021-12-21] MEDS: Cholecalciferol (VIT D3) 1,000 unit TAB PO SCH (09:57)
[2021-12-21] MEDS: Albumin Human 25% 25 GM/100 ML IV SCH ×3 (17:48→19:18)
[2021-12-21] MEDS ORDERED: Albumin Human 25% 75 GM/300 ML BTL IV SCH (18:00)
[2021-12-21] MEDS ORDERED: Octreotide Acetate 500 MCG in NS 0.9% 100 ml BAG 100 ML IV SCH (18:00)
[2021-12-21] MEDS: Enoxaparin 40 MG/0.4 ML SYR SUBCUT SCH (20:25)
[2021-12-21] MEDS: Insulin GLARGINE 100 un/ml 10 ml VIAL SUBCUT SCH (21:05)
[2021-12-21] MEDS ORDERED: Lidocaine PATCH 5% PATCH TRANSDERM SCH (23:00)
[2021-12-22] MEDS: Cholestyramine Resin 4 GM POWDER PO SCH (07:29)
[2021-12-22] MEDS: Cholecalciferol (VIT D3) 1,000 unit TAB PO SCH (07:29)
[2021-12-22] MEDS: Lidocaine PATCH 5% PATCH TRANSDERM SCH (07:29)
[2021-12-22 07:48] VITALS: BP 110/43
[2021-12-22] MEDS ORDERED: Albumin Human 25% 25 GM/100 ML IV SCH (18:00)
[2021-12-23] MEDS ORDERED: Albumin Human 25% 25 GM/100 ML BTL IV SCH (09:00)
[2021-12-25 12:08] LABS: Immunoglobulin G 1650 mg/dL (767 - 1590); Immunoglobulin M 103 mg/dL (37 - 286)
== END 2021-12-22 08:20 | disposition short-term general hospital (02) | DRG 442 ==
LOC: ED 14:13 → EDHOLD 21:01 → SUATTDRO 21:01 → MED 12-20 00:08
PROVIDERS: ADMIT Internal Medicine; ATTEND Internal Medicine

== ENCOUNTER 2022-01-25 11:29 | Inpatient (IN) ==
[2022-01-25 12:42] LABS: ABS Eosinophils 0.2 10^3/ul (0-0.6); ABS Lymphocytes 0.6 10^3/ul (1.0-4.8); ABS Monocytes 0.8 10^3/ul (0-0.8); ABS Neutrophils 5.6 10^3/ul (1.5-7.7); Eosinophil % 2.8 %; Hematocrit 30 % (35-47); Lymphocyte % 8.4 %; Mean Corpuscular HGB Conc 34 g/dL (31-36); Mean Corpuscular Hemoglobin 33 pg (27-31); Mean Corpuscular Volume 99 fL (80-97); Mean Platelet Volume 8.3 fL (7.4-10.4); Platelet Count 46 10^3/uL (150-450); Red Blood Count 3.02 10^6 /uL (3.70-4.87); Red Cell Distribution Width 18 % (10-15); White Blood Count 7.3 10^3/uL (3.5-10.8)
[2022-01-25 12:54] LABS: INR 2.6 (0.86-1.15)
[2022-01-25 13:01] LABS: Albumin 2.2 g/dL (3.2-5.2); Albumin/Globulin Ratio 0.8 (1-3); Calcium 7.8 mg/dL (8.6-10.3); Globulin 2.7 g/dL (2-4); Potassium 4.5 mmol/L (3.5-5.0); Total Protein 4.9 g/dL (6.4-8.9); eGFR CKD-EPI 52.2 (>60)
[2022-01-25 13:02] LABS: Total Bilirubin 19.9 mg/dL (0.2-1.0)
[2022-01-25] MEDS ORDERED: Octreotide Acetate 50 MCG in NS 0.9% 50 ML 50 ML IV ONE (15:36)
[2022-01-25] MEDS ORDERED: Pantoprazole 80 mg in NS BAG 80 MG/250 ML BAG IV ONE (16:00)
[2022-01-25] MEDS ORDERED: Albumin Human 25% 25 GM/100 ML BTL IV ONE (16:24)
[2022-01-25] MEDS ORDERED: Pantoprazole VIAL 40 MG VIAL IV ONE (16:32)
[2022-01-25] MEDS ORDERED: Dextrose 50% Syringe 50 ml 25 GM/50 ML SYRINGE IV PUSH PRN (17:13)
[2022-01-25 18:34] LABS: Magnesium 1.7 mg/dL (1.9-2.7)
[2022-01-25] MEDS: Octreotide Acetate 500 MCG in NS 0.9% 100 ml BAG 100 ML IV SCH (18:56)
[2022-01-25] MEDS: cefTRIAXone 2 GM ADDV.VIAL 2 GM in NS 0.9% 100 ml BAG 100 ML IV SCH (20:41)
[2022-01-25] MEDS ORDERED: Pantoprazole VIAL 40 MG VIAL IV SCH (21:00)
[2022-01-25 23:34] LABS: Hematocrit 28 % (35-47); Hemoglobin 9.7 g/dL (12.0-16.0)
[2022-01-25] MEDS: Insulin GLARGINE 100 un/ml 10 ml VIAL SUBCUT SCH (23:46)
[2022-01-26] MEDS: Octreotide Acetate 500 MCG in NS 0.9% 100 ml BAG 100 ML IV SCH ×3 (02:37→23:35)
[2022-01-26 06:08] LABS: Hematocrit 25 % (35-47); Hemoglobin 8.8 g/dL (12.0-16.0)
[2022-01-26 06:17] LABS: ABS Eosinophils 0.2 10^3/ul (0-0.6); ABS Lymphocytes 0.8 10^3/ul (1.0-4.8); ABS Monocytes 0.5 10^3/ul (0-0.8); ABS Neutrophils 3.8 10^3/ul (1.5-7.7); Eosinophil % 4.4 %; Hematocrit 26 % (35-47); Hemoglobin 8.9 g/dL (12.0-16.0); Lymphocyte % 15.5 %; Mean Corpuscular HGB Conc 35 g/dL (31-36); Mean Corpuscular Hemoglobin 34 pg (27-31); Mean Corpuscular Volume 97 fL (80-97); Mean Platelet Volume 8.6 fL (7.4-10.4); Nucleated Red Blood Cells % 0.2; Platelet Count 40 10^3/uL (150-450); Red Blood Count 2.64 10^6 /uL (3.70-4.87); Red Cell Distribution Width 17 % (10-15); White Blood Count 5.3 10^3/uL (3.5-10.8)
[2022-01-26 06:53] LABS: Calcium 7.8 mg/dL (8.6-10.3); Potassium 4.6 mmol/L (3.5-5.0); eGFR CKD-EPI 56.9 (>60)
[2022-01-26 07:02] LABS: Magnesium 1.6 mg/dL (1.9-2.7)
[2022-01-26] MEDS ORDERED: Magnesium Sulf 4 GM/100 ML IV 4,000 MG/100 ML BAG IVPB ONE (09:00)
[2022-01-26 10:01] LABS: Hematocrit 27 % (35-47); Hemoglobin 9.1 g/dL (12.0-16.0)
[2022-01-26] MEDS: fentaNYL 100 mcg/2 ml 50 MCG/ML VIAL IV SLOW PU PRN (10:12)
[2022-01-26] MEDS ORDERED: Midazolam 10 mg/10 ml VIAL 1 mg/ml 10 ml VIAL (10 mg) ONE (15:28)
[2022-01-26] MEDS ORDERED: fentaNYL 100 mcg/2 ml 50 MCG/ML VIAL ONE (15:28)
[2022-01-26] MEDS: Insulin GLARGINE 100 un/ml 10 ml VIAL SUBCUT SCH (21:06)
[2022-01-26] MEDS: cefTRIAXone 2 GM ADDV.VIAL 2 GM in NS 0.9% 100 ml BAG 100 ML IV SCH (21:07)
[2022-01-26 21:12] LABS: Hematocrit 26 % (35-47); Hemoglobin 8.8 g/dL (12.0-16.0)
[2022-01-27] MEDS: Octreotide Acetate 500 MCG in NS 0.9% 100 ml BAG 100 ML IV SCH ×2 (03:51→15:32)
[2022-01-27 06:26] LABS: ABS Eosinophils 0.4 10^3/ul (0-0.6); ABS Lymphocytes 0.8 10^3/ul (1.0-4.8); ABS Monocytes 0.7 10^3/ul (0-0.8); ABS Neutrophils 4.1 10^3/ul (1.5-7.7); Hematocrit 24 % (35-47); Hemoglobin 8.3 g/dL (12.0-16.0); Lymphocyte % 13.5 %; Mean Corpuscular HGB Conc 34 g/dL (31-36); Mean Corpuscular Hemoglobin 34 pg (27-31); Mean Corpuscular Volume 98 fL (80-97); Mean Platelet Volume 8.3 fL (7.4-10.4); Nucleated Red Blood Cells % 0.1; Platelet Count 45 10^3/uL (150-450); Red Blood Count 2.47 10^6 /uL (3.70-4.87); Red Cell Distribution Width 17 % (10-15); White Blood Count 6.1 10^3/uL (3.5-10.8)
[2022-01-27 06:34] LABS: Albumin 2.2 g/dL (3.2-5.2); Calcium 7.6 mg/dL (8.6-10.3); Globulin 2.3 g/dL (2-4); Total Protein 4.5 g/dL (6.4-8.9); eGFR CKD-EPI 52.8 (>60)
[2022-01-27 06:55] LABS: Magnesium 2.2 mg/dL (1.9-2.7); Potassium 5.2 mmol/L (3.5-5.0)
[2022-01-27 06:57] LABS: Total Bilirubin 19.6 mg/dL (0.2-1.0)
[2022-01-27] MEDS: Lactulose 30 ml UDC PO SCH ×3 (08:54→21:18)
[2022-01-27] MEDS: cefTRIAXone 2 GM ADDV.VIAL 2 GM in NS 0.9% 100 ml BAG 100 ML IV SCH (18:09)
[2022-01-27] MEDS: Insulin GLARGINE 100 un/ml 10 ml VIAL SUBCUT SCH (21:19)
[2022-01-27] MEDS: fentaNYL 100 mcg/2 ml 50 MCG/ML VIAL IV SLOW PU PRN (21:41)
[2022-01-28] MEDS: fentaNYL 100 mcg/2 ml 50 MCG/ML VIAL IV SLOW PU PRN ×8 (02:05→21:24)
[2022-01-28] MEDS: Octreotide Acetate 500 MCG in NS 0.9% 100 ml BAG 100 ML IV SCH ×2 (02:19→18:30)
[2022-01-28 05:57] LABS: Hematocrit 25 % (35-47); Hemoglobin 8.6 g/dL (12.0-16.0); Mean Corpuscular HGB Conc 35 g/dL (31-36); Mean Corpuscular Hemoglobin 35 pg (27-31); Mean Corpuscular Volume 100 fL (80-97); Mean Platelet Volume 8.5 fL (7.4-10.4); Platelet Count 43 10^3/uL (150-450); Red Blood Count 2.48 10^6 /uL (3.70-4.87); Red Cell Distribution Width 17 % (10-15); White Blood Count 5.7 10^3/uL (3.5-10.8)
[2022-01-28 06:11] LABS: Calcium 7.3 mg/dL (8.6-10.3); Potassium 4.6 mmol/L (3.5-5.0); eGFR CKD-EPI 55.1 (>60)
[2022-01-28] MEDS: Lactulose 30 ml UDC PO SCH ×3 (09:37→21:24)
[2022-01-28] MEDS ORDERED: fentaNYL PATCH 12 MCG/HR 1 PATCH TRANSDERM SCH (15:00)
[2022-01-28] MEDS ORDERED: fentaNYL Patch Check Q Shift NOTE SCH (19:00)
[2022-01-28] MEDS: Insulin GLARGINE 100 un/ml 10 ml VIAL SUBCUT SCH (21:24)
[2022-01-29] MEDS: fentaNYL 100 mcg/2 ml 50 MCG/ML VIAL IV SLOW PU PRN ×4 (06:14→20:26)
[2022-01-29] MEDS: Lactulose 30 ml UDC PO SCH ×3 (09:24→20:25)
[2022-01-29] MEDS: Insulin GLARGINE 100 un/ml 10 ml VIAL SUBCUT SCH (20:25)
[2022-01-30] MEDS: fentaNYL 100 mcg/2 ml 50 MCG/ML VIAL IV SLOW PU PRN ×4 (03:50→21:44)
[2022-01-30 06:09] LABS: ABS Basophils 0.1 10^3/ul (0-0.2); ABS Eosinophils 0.5 10^3/ul (0-0.6); ABS Lymphocytes 1.8 10^3/ul (1.0-4.8); ABS Monocytes 0.8 10^3/ul (0-0.8); ABS Neutrophils 3.9 10^3/ul (1.5-7.7); Eosinophil % 7.2 %; Hematocrit 24 % (35-47); Hemoglobin 8.2 g/dL (12.0-16.0); Lymphocyte % 24.6 %; Mean Corpuscular HGB Conc 34 g/dL (31-36); Mean Corpuscular Hemoglobin 34 pg (27-31); Mean Corpuscular Volume 98 fL (80-97); Mean Platelet Volume 8.2 fL (7.4-10.4); Nucleated Red Blood Cells % 0.2; Platelet Count 57 10^3/uL (150-450); Red Blood Count 2.43 10^6 /uL (3.70-4.87); Red Cell Distribution Width 17 % (10-15); White Blood Count 7.1 10^3/uL (3.5-10.8)
[2022-01-30 06:38] LABS: Albumin 2.1 g/dL (3.2-5.2); Albumin/Globulin Ratio 0.8 (1-3); Calcium 7.7 mg/dL (8.6-10.3); Globulin 2.5 g/dL (2-4); Potassium 4.8 mmol/L (3.5-5.0); Total Protein 4.6 g/dL (6.4-8.9); eGFR CKD-EPI 49.6 (>60)
[2022-01-30 06:52] LABS: Total Bilirubin 18.3 mg/dL (0.2-1.0)
[2022-01-30] MEDS: Lactulose 30 ml UDC PO SCH ×3 (09:26→21:44)
[2022-01-30 20:33] LABS: Magnesium 1.7 mg/dL (1.9-2.7)
[2022-01-30] MEDS: Insulin GLARGINE 100 un/ml 10 ml VIAL SUBCUT SCH (21:46)
[2022-01-31] MEDS: fentaNYL 100 mcg/2 ml 50 MCG/ML VIAL IV SLOW PU PRN ×4 (04:46→22:52)
[2022-01-31 05:19] LABS: Hematocrit 22 % (35-47); Hemoglobin 7.6 g/dL (12.0-16.0); Mean Corpuscular HGB Conc 34 g/dL (31-36); Mean Corpuscular Hemoglobin 34 pg (27-31); Mean Corpuscular Volume 98 fL (80-97); Mean Platelet Volume 8.1 fL (7.4-10.4); Platelet Count 48 10^3/uL (150-450); Red Blood Count 2.27 10^6 /uL (3.70-4.87); Red Cell Distribution Width 17 % (10-15); White Blood Count 5.7 10^3/uL (3.5-10.8)
[2022-01-31 05:26] LABS: INR 2.89 (0.86-1.15)
[2022-01-31 05:53] LABS: Albumin/Globulin Ratio 0.8 (1-3); Calcium 7.8 mg/dL (8.6-10.3); Globulin 2.4 g/dL (2-4); Total Protein 4.4 g/dL (6.4-8.9); eGFR CKD-EPI 51.1 (>60)
[2022-01-31 05:55] LABS: Magnesium 1.7 mg/dL (1.9-2.7); Total Bilirubin 17.3 mg/dL (0.2-1.0)
[2022-01-31] MEDS: Lactulose 30 ml UDC PO SCH ×4 (08:52→20:16)
[2022-01-31] MEDS ORDERED: Magnesium Sulfate IV 3 GM in NS 0.9% 100 ml BAG 100 ML IVPB ONE (15:15)
[2022-01-31] MEDS ORDERED: COVID-19 VACCINE, MRNA(MODERNA)/PF 100 MCG/0.5 ML IM ONE (15:30)
[2022-01-31] MEDS ORDERED: Magnesium Sulfate 2 GM IV (Premix) IVPB ONE (16:00)
[2022-01-31] MEDS ORDERED: Magnesium Sulfate 1 GM IV 1 GM/100 ML BAG IV ONE (17:00)
[2022-01-31] MEDS: Insulin GLARGINE 100 un/ml 10 ml VIAL SUBCUT SCH (20:18)
[2022-02-01 05:02] LABS: INR 2.63 (0.86-1.15)
[2022-02-01 05:18] LABS: Hematocrit 24 % (35-47); Hemoglobin 8.2 g/dL (12.0-16.0); Mean Corpuscular HGB Conc 34 g/dL (31-36); Mean Corpuscular Hemoglobin 34 pg (27-31); Mean Corpuscular Volume 99 fL (80-97); Mean Platelet Volume 8.4 fL (7.4-10.4); Platelet Count 51 10^3/uL (150-450); Red Blood Count 2.42 10^6 /uL (3.70-4.87); Red Cell Distribution Width 18 % (10-15); White Blood Count 8.8 10^3/uL (3.5-10.8)
[2022-02-01 05:32] LABS: Albumin 2.1 g/dL (3.2-5.2); Albumin/Globulin Ratio 0.8 (1-3); Calcium 7.7 mg/dL (8.6-10.3); Globulin 2.7 g/dL (2-4); Potassium 4.5 mmol/L (3.5-5.0); Total Protein 4.8 g/dL (6.4-8.9); eGFR CKD-EPI 42.7 (>60)
[2022-02-01 05:44] LABS: Magnesium 2.4 mg/dL (1.9-2.7)
[2022-02-01 05:45] LABS: Total Bilirubin 17.9 mg/dL (0.2-1.0)
[2022-02-01] MEDS: fentaNYL 100 mcg/2 ml 50 MCG/ML VIAL IV SLOW PU PRN ×6 (06:11→23:00)
[2022-02-01] MEDS: Lactulose 30 ml UDC PO SCH ×3 (10:25→20:20)
[2022-02-01] MEDS: Insulin GLARGINE 100 un/ml 10 ml VIAL SUBCUT SCH (20:22)
[2022-02-02] MEDS: fentaNYL 100 mcg/2 ml 50 MCG/ML VIAL IV SLOW PU PRN ×6 (03:24→23:03)
[2022-02-02 05:23] LABS: Hematocrit 22 % (35-47); Hemoglobin 7.5 g/dL (12.0-16.0); Mean Corpuscular HGB Conc 34 g/dL (31-36); Mean Corpuscular Hemoglobin 34 pg (27-31); Mean Corpuscular Volume 99 fL (80-97); Mean Platelet Volume 8.3 fL (7.4-10.4); Platelet Count 44 10^3/uL (150-450); Red Blood Count 2.23 10^6 /uL (3.70-4.87); Red Cell Distribution Width 18 % (10-15); White Blood Count 7.5 10^3/uL (3.5-10.8)
[2022-02-02 05:27] LABS: INR 2.78 (0.86-1.15)
[2022-02-02 05:52] LABS: Albumin 1.9 g/dL (3.2-5.2); Albumin/Globulin Ratio 0.8 (1-3); Calcium 7.3 mg/dL (8.6-10.3); Globulin 2.5 g/dL (2-4); Potassium 4.4 mmol/L (3.5-5.0); Total Protein 4.4 g/dL (6.4-8.9); eGFR CKD-EPI 45.5 (>60)
[2022-02-02 05:56] LABS: Total Bilirubin 16.2 mg/dL (0.2-1.0)
[2022-02-02] MEDS: Lactulose 30 ml UDC PO SCH ×3 (08:19→20:29)
[2022-02-02 16:34] LABS: Hematocrit 23 % (35-47); Hemoglobin 7.8 g/dL (12.0-16.0)
[2022-02-02] MEDS: Insulin GLARGINE 100 un/ml 10 ml VIAL SUBCUT SCH (20:34)
[2022-02-03] MEDS: fentaNYL 100 mcg/2 ml 50 MCG/ML VIAL IV SLOW PU PRN ×8 (01:55→22:32)
[2022-02-03 05:54] LABS: Hematocrit 23 % (35-47); Hemoglobin 7.8 g/dL (12.0-16.0); Mean Corpuscular HGB Conc 34 g/dL (31-36); Mean Corpuscular Hemoglobin 34 pg (27-31); Mean Corpuscular Volume 100 fL (80-97); Mean Platelet Volume 8.2 fL (7.4-10.4); Platelet Count 55 10^3/uL (150-450); Red Cell Distribution Width 18 % (10-15); White Blood Count 8.4 10^3/uL (3.5-10.8)
[2022-02-03 06:16] LABS: Albumin 1.9 g/dL (3.2-5.2); Albumin/Globulin Ratio 0.7 (1-3); Calcium 7.2 mg/dL (8.6-10.3); Globulin 2.7 g/dL (2-4); Potassium 4.3 mmol/L (3.5-5.0); Total Protein 4.6 g/dL (6.4-8.9); eGFR CKD-EPI 43.9 (>60)
[2022-02-03 06:20] LABS: Magnesium 2.2 mg/dL (1.9-2.7)
[2022-02-03 06:22] LABS: Total Bilirubin 16.7 mg/dL (0.2-1.0)
[2022-02-03] MEDS: Lactulose 30 ml UDC PO SCH ×3 (08:15→20:11)
[2022-02-03] MEDS ORDERED: Albumin Human 25% 25 GM/100 ML BTL IV ONE (15:00)
[2022-02-03] MEDS: Insulin GLARGINE 100 un/ml 10 ml VIAL SUBCUT SCH (20:12)
[2022-02-04] MEDS: fentaNYL 100 mcg/2 ml 50 MCG/ML VIAL IV SLOW PU PRN ×5 (03:39→21:42)
[2022-02-04 05:21] LABS: ABS Eosinophils 0.5 10^3/ul (0-0.6); ABS Lymphocytes 1.6 10^3/ul (1.0-4.8); ABS Monocytes 0.7 10^3/ul (0-0.8); ABS Neutrophils 3.4 10^3/ul (1.5-7.7); Eosinophil % 7.6 %; Hematocrit 21 % (35-47); Hemoglobin 7.1 g/dL (12.0-16.0); Lymphocyte % 25.5 %; Mean Corpuscular HGB Conc 34 g/dL (31-36); Mean Corpuscular Hemoglobin 34 pg (27-31); Mean Corpuscular Volume 99 fL (80-97); Mean Platelet Volume 8.5 fL (7.4-10.4); Platelet Count 45 10^3/uL (150-450); Red Blood Count 2.12 10^6 /uL (3.70-4.87); Red Cell Distribution Width 19 % (10-15); White Blood Count 6.1 10^3/uL (3.5-10.8)
[2022-02-04 05:26] LABS: INR 2.76 (0.86-1.15)
[2022-02-04 05:49] LABS: Albumin 2.1 g/dL (3.2-5.2); Albumin/Globulin Ratio 0.9 (1-3); Calcium 7.5 mg/dL (8.6-10.3); Globulin 2.4 g/dL (2-4); Total Protein 4.5 g/dL (6.4-8.9); eGFR CKD-EPI 42.7 (>60)
[2022-02-04 05:55] LABS: Magnesium 2.2 mg/dL (1.9-2.7); Total Bilirubin 15.2 mg/dL (0.2-1.0)
[2022-02-04] MEDS: Lactulose 30 ml UDC PO SCH ×3 (08:12→19:58)
[2022-02-04] MEDS ORDERED: Albumin Human 25% 25 GM/100 ML BTL IV ONE (10:00)
[2022-02-04 14:31] LABS: Hematocrit 22 % (35-47); Hemoglobin 7.2 g/dL (12.0-16.0)
[2022-02-04] MEDS: Insulin GLARGINE 100 un/ml 10 ml VIAL SUBCUT SCH (19:58)
[2022-02-05] MEDS: fentaNYL 100 mcg/2 ml 50 MCG/ML VIAL IV SLOW PU PRN ×7 (03:11→22:03)
[2022-02-05 05:45] LABS: Hematocrit 20 % (35-47); Hemoglobin 7.1 g/dL (12.0-16.0); Mean Corpuscular HGB Conc 35 g/dL (31-36); Mean Corpuscular Hemoglobin 34 pg (27-31); Mean Corpuscular Volume 98 fL (80-97); Mean Platelet Volume 8.8 fL (7.4-10.4); Platelet Count 48 10^3/uL (150-450); Red Blood Count 2.07 10^6 /uL (3.70-4.87); Red Cell Distribution Width 18 % (10-15); White Blood Count 6.9 10^3/uL (3.5-10.8)
[2022-02-05 05:49] LABS: INR 2.79 (0.86-1.15)
[2022-02-05 05:57] LABS: Albumin 2.3 g/dL (3.2-5.2); Calcium 7.4 mg/dL (8.6-10.3); Globulin 2.3 g/dL (2-4); Potassium 4.2 mmol/L (3.5-5.0); Total Protein 4.6 g/dL (6.4-8.9)
[2022-02-05 05:58] LABS: Magnesium 2.2 mg/dL (1.9-2.7)
[2022-02-05 06:00] LABS: Total Bilirubin 14.8 mg/dL (0.2-1.0)
[2022-02-05] MEDS: Lactulose 30 ml UDC PO SCH ×3 (08:05→22:00)
[2022-02-05] MEDS ORDERED: Albumin Human 25% 25 GM/100 ML BTL IV ONE (13:30)
[2022-02-05] MEDS: Insulin GLARGINE 100 un/ml 10 ml VIAL SUBCUT SCH (21:58)
[2022-02-06 06:22] LABS: Hematocrit 19 % (35-47); Hemoglobin 6.6 g/dL (12.0-16.0); Mean Corpuscular HGB Conc 34 g/dL (31-36); Mean Corpuscular Hemoglobin 34 pg (27-31); Mean Corpuscular Volume 99 fL (80-97); Mean Platelet Volume 8.8 fL (7.4-10.4); Platelet Count 44 10^3/uL (150-450); Red Blood Count 1.95 10^6 /uL (3.70-4.87); Red Cell Distribution Width 19 % (10-15); White Blood Count 5.4 10^3/uL (3.5-10.8)
[2022-02-06 07:21] LABS: Albumin 2.4 g/dL (3.2-5.2); Albumin/Globulin Ratio 1.1 (1-3); Calcium 7.5 mg/dL (8.6-10.3); Globulin 2.1 g/dL (2-4); Potassium 4.2 mmol/L (3.5-5.0); Total Protein 4.5 g/dL (6.4-8.9); eGFR CKD-EPI 32.4 (>60)
[2022-02-06 08:29] LABS: Total Bilirubin 13.5 mg/dL (0.2-1.0)
[2022-02-06] MEDS: Lactulose 30 ml UDC PO SCH ×3 (08:32→20:54)
[2022-02-06] MEDS: fentaNYL 100 mcg/2 ml 50 MCG/ML VIAL IV SLOW PU PRN ×4 (11:14→23:03)
[2022-02-06] MEDS ORDERED: fentaNYL 100 mcg/2 ml 50 MCG/ML VIAL IV SLOW PU ONE (12:21)
[2022-02-06] MEDS ORDERED: Iodixanol (CONTRAST) 320 MG/ML 100 ML SDV IV ONE (13:12)
[2022-02-06 17:33] LABS: Hematocrit 23 % (35-47); Hemoglobin 7.8 g/dL (12.0-16.0)
[2022-02-06] MEDS ORDERED: Octreotide Acetate 50 MCG in NS 0.9% 50 ML 50 ML IV ONE (18:30)
[2022-02-06] MEDS ORDERED: Octreotide Acetate 500 MCG in NS 0.9% 100 ml BAG 100 ML IV SCH (19:00)
[2022-02-06] MEDS: Insulin GLARGINE 100 un/ml 10 ml VIAL SUBCUT SCH (20:55)
[2022-02-06 21:55] LABS: Hematocrit 24 % (35-47); Hemoglobin 8.3 g/dL (12.0-16.0)
[2022-02-07] MEDS: fentaNYL 100 mcg/2 ml 50 MCG/ML VIAL IV SLOW PU PRN ×3 (01:43→10:32)
[2022-02-07 01:44] LABS: Hematocrit 23 % (35-47); Hemoglobin 8.1 g/dL (12.0-16.0)
[2022-02-07 01:54] LABS: Urine Appearance Cloudy; Urine Bilirubin 1+ (Negative); Urine Blood Negative (Negative); Urine Color Amber; Urine Glucose Negative (Negative); Urine Ketones Negative (Negative); Urine Nitrite Negative (Negative); Urine Protein Negative (Negative); Urine Specific Gravity 1.051 (1.002-1.030); Urine Urobilinogen Negative (Negative)
[2022-02-07 05:45] LABS: ABS Eosinophils 0.6 10^3/ul (0-0.6); ABS Lymphocytes 1.6 10^3/ul (1.0-4.8); ABS Monocytes 0.9 10^3/ul (0-0.8); ABS Neutrophils 4.2 10^3/ul (1.5-7.7); Eosinophil % 8.5 %; Hematocrit 23 % (35-47); Hemoglobin 7.9 g/dL (12.0-16.0); Lymphocyte % 22.3 %; Mean Corpuscular HGB Conc 35 g/dL (31-36); Mean Corpuscular Hemoglobin 34 pg (27-31); Mean Corpuscular Volume 97 fL (80-97); Mean Platelet Volume 9.3 fL (7.4-10.4); Platelet Count 57 10^3/uL (150-450); Red Blood Count 2.32 10^6 /uL (3.70-4.87); Red Cell Distribution Width 20 % (10-15); White Blood Count 7.4 10^3/uL (3.5-10.8)
[2022-02-07 05:47] LABS: INR 2.75 (0.86-1.15)
[2022-02-07 06:19] LABS: Albumin 2.4 g/dL (3.2-5.2); Calcium 7.4 mg/dL (8.6-10.3); Globulin 2.5 g/dL (2-4); Potassium 4.2 mmol/L (3.5-5.0); Total Protein 4.9 g/dL (6.4-8.9); eGFR CKD-EPI 26.7 (>60)
[2022-02-07 06:23] LABS: Magnesium 2.3 mg/dL (1.9-2.7); Total Bilirubin 17.6 mg/dL (0.2-1.0)
[2022-02-07] MEDS: Lactulose 30 ml UDC PO SCH ×2 (08:08→21:48)
[2022-02-07] MEDS ORDERED: Albumin Human 25% 25 GM/100 ML BTL IV SCH (12:00)
[2022-02-07] MEDS ORDERED: Albumin Human 25% 50 GM/200 ML BTL IV ONE (12:26)
[2022-02-07] MEDS: Albumin Human 25% 25 GM/100 ML IV SCH ×2 (14:15→16:33)
[2022-02-07 15:23] LABS: Hematocrit 24 % (35-47); Hemoglobin 8.3 g/dL (12.0-16.0)
[2022-02-07] MEDS ORDERED: Piperacillin/Tazobac ADVAN 3.375 GM in NS 0.9% 100 ml BAG 100 ML IV ONE (16:49)
[2022-02-07] MEDS ORDERED: Zosyn per Pharmacy NOTE FOLLOW UP SCH (17:00)
[2022-02-07] MEDS ORDERED: NORMOSOL-R pH 7.4 1000 mL BAG 500 ML IV SCH (18:00)
[2022-02-07] MEDS: Saline FLUSH-CENTRAL 10 ML SYRINGE CENT\\PICC SCH (20:09)
[2022-02-07] MEDS: Norepinephrine 16MCG/ML BAGD5W 4,000 MCG/250 ML BAG IV SCH (20:13)
[2022-02-07] MEDS: Insulin GLARGINE 100 un/ml 10 ml VIAL SUBCUT SCH (21:47)
[2022-02-07] MEDS: ZOSYN 3.375 GM Q12H per EXTENDED INFUSION IV SCH (21:47)
[2022-02-07] MEDS: Albumin Human 25% 25 GM/100 ML BTL IV SCH (21:48)
[2022-02-07] MEDS ORDERED: Octreotide Acetate 50 MCG/ML ML SUBCUT SCH (22:00)
[2022-02-07 22:47] LABS: High Sensitivity Troponin 1 Hr 13 pg/mL (<15)
[2022-02-08] MEDS: fentaNYL 100 mcg/2 ml 50 MCG/ML VIAL IV SLOW PU PRN ×3 (02:59→14:44)
[2022-02-08 03:51] LABS: Urine Appearance Cloudy; Urine Bilirubin Negative (Negative); Urine Blood 1+ (Negative); Urine Color Amber; Urine Glucose Negative (Negative); Urine Ketones Negative (Negative); Urine Nitrite Negative (Negative); Urine Protein 1+(30 mg/dL) (Negative); Urine Urobilinogen Negative (Negative)
[2022-02-08 03:59] LABS: Urine Bacteria 1+ (Absent); Urine Red Blood Cell 3+(>10/hpf) (Absent); Urine Squamous Epithelial Cell Present (Absent); Urine White Blood Cell Trace(0-5/hpf) (Absent)
[2022-02-08 05:26] LABS: ABS Eosinophils 0.6 10^3/ul (0-0.6); ABS Lymphocytes 1.4 10^3/ul (1.0-4.8); ABS Monocytes 0.8 10^3/ul (0-0.8); ABS Neutrophils 4.1 10^3/ul (1.5-7.7); Eosinophil % 9.4 %; Hematocrit 21 % (35-47); Hemoglobin 7.3 g/dL (12.0-16.0); Lymphocyte % 20.5 %; Mean Corpuscular HGB Conc 35 g/dL (31-36); Mean Corpuscular Hemoglobin 34 pg (27-31); Mean Corpuscular Volume 99 fL (80-97); Mean Platelet Volume 8.8 fL (7.4-10.4); Platelet Count 65 10^3/uL (150-450); Red Blood Count 2.12 10^6 /uL (3.70-4.87); Red Cell Distribution Width 20 % (10-15); White Blood Count 6.9 10^3/uL (3.5-10.8)
[2022-02-08 06:00] LABS: INR 2.9 (0.86-1.15)
[2022-02-08 06:16] LABS: Albumin 3.4 g/dL (3.2-5.2); Albumin/Globulin Ratio 1.5 (1-3); Globulin 2.2 g/dL (2-4); Phosphorus 3.6 mg/dL (2.5-5.0); Potassium 4.4 mmol/L (3.5-5.0); Total Protein 5.6 g/dL (6.4-8.9); eGFR CKD-EPI 21.5 (>60)
[2022-02-08 06:18] LABS: Magnesium 2.5 mg/dL (1.9-2.7)
[2022-02-08] MEDS: Norepinephrine 16MCG/ML BAGD5W 4,000 MCG/250 ML BAG IV SCH ×2 (07:51→14:44)
[2022-02-08] MEDS: Saline FLUSH-CENTRAL 10 ML SYRINGE CENT\\PICC SCH (09:14)
[2022-02-08] MEDS: Albumin Human 25% 25 GM/100 ML BTL IV SCH (09:15)
[2022-02-08] MEDS: Lactulose 30 ml UDC PO SCH (09:15)
[2022-02-08] MEDS ORDERED: Lidocaine PATCH 5% PATCH TRANSDERM SCH (10:00)
[2022-02-08] MEDS: ZOSYN 3.375 GM Q12H per EXTENDED INFUSION IV SCH (10:55)
[2022-02-08 18:21] VITALS: BP 90/44
== END 2022-02-08 18:27 | disposition short-term general hospital (02) | DRG 432 ==
LOC: ED 11:29 → SUATTDRO 16:49 → EDHOLD 16:49 → MED 22:04 → ICU 02-07 16:42
PROVIDERS: ADMIT Internal Medicine; ATTEND Internal Medicine